=== PATIENT | female | born 1995 | race Caucasian/White ===

== ENCOUNTER 2021-01-27 11:52 | Day surgery (SDC) | payer OTHER, BC ==
[2021-01-22 14:55] VITALS: BMI 40.2
[~2021-01-27 11:52] MED LIST: DEXAMETHASONE SOD PHOSPHATE 4 MG/ML 1 ML VIAL IV ONE; HYDROmorphone 0.5 MG/0.5 ML SYRINGE IVP PRN; LACTATED RINGERS 1,000 ML IV SCH; LIDOCAINE 1% (10MG/ML) FOR IV START INTRADERMA PRN; MIDAZOLAM 2 MG/2 ML VIAL IV PRN; ONDANSETRON 4 MG/2 ML VIAL IVP ONE
[2021-01-27 12:21] VITALS: TEMP 98.3
[2021-01-27] MEDS ORDERED: MIDAZOLAM 2 MG/2 ML VIAL ONE (12:55)
[2021-01-27] MEDS ORDERED: PHENYLEPHRINE-0.9% NACL SYG 1,000 MCG/10 ML SYRINGE ONE (12:55)
[2021-01-27] MEDS ORDERED: fentaNYL (PF) 50 MCG/ML 2 ML AMP ONE (12:55)
[2021-01-27] MEDS ORDERED: PROPOFOL 10 MG/ML 20 ML VIAL IV ONE (12:55)
[2021-01-27] MEDS ORDERED: BUPIVACAINE (PF) 0.25% 30 ML VIAL SQ ONE (12:57)
[2021-01-27] MEDS ORDERED: CLINDAMYCIN 150 MG/ML 4 ML VIAL IVPB ONE (13:05)
[2021-01-27] MEDS ORDERED: LIDOCAINE 1% (PF) 10 MG/ML (30 ML SDV) SQ ONE (13:16)
[2021-01-27 13:38] VITALS: RESP 16
--- NOTE | 2021-01-27 13:39 | P.OP ---
Date of Procedure: 01/27/21 Preoperative Diagnosis: Hypertrophied bone fifth toe right foot Postoperative Diagnosis: Same Procedure(s) Performed: Terminal Syme procedure fifth toe right foot Anesthesia: MAC Surgeon: Indra Tamayo Indications for Procedure: Painful corn fifth digit right foot Operative Findings: Remarkable Description of Procedure: On the date of surgery the patient was taken to the operating room in good condition placed on the operating table in supine position where an IV was started and adequate IV anesthetic agents were utilized. Anesthesia was then further supplemented with approximately 4 mL of 0.25% plain Marcaine given in a digital block to the fifth ray of the patient's right foot. The patient's right foot and ankle were then prepped and draped in the usual aseptic manner and over heavy web roll padding an ankle tourniquet was placed above the malleoli of the patient's right ankle. The patient's right foot and ankle were then elevated and exsanguinated of blood utilizing an Esmarch bandage and after approximately 1 minutes. A time the ankle tourniquet to the right ankle was inflated to approximately 250 mmHg At this point in time attention was directed to the distal aspect of the fifth toe the right foot where approximately 1 cm fishmouth incision was made. The incision was deepened via sharp dissection down through the level of the subcutaneous tissue layers all neurovascular structures encountered were identified isolated and were retracted and any bleeding vessels were clamped and electrocauterized. Throughout the surgical procedure copious amounts sterile saline solution was used to irrigate the surgical site. Dissection was then carried deep down to level of the terminal phalanx which was identified and dissected free dorsally plantarly medially and laterally. Using bone-cutting Ciro hyperostosis and hypertrophied bone at the distal aspect of the terminal phalanx was removed in total from the surgical site. Was determined that adequate bone had been removed skin edges were coaptated and maintained utilizing 4-0 nylon simple interrupted suture Adaptic sterile 4 x 4 gauze four-inch conformer's used to form a compression dressing and the ankle tourniquet to the right ankle was deflated adequate hemostatic return was seen in all digits of the right foot. The patient tolerated the surgery and anesthesia well and was taken recovery room in good postoperative condition
[2021-01-27 14:07] VITALS: BP 118/75; PULSE 56
== END 2021-01-27 14:40 | disposition home or self-care (01) ==
LOC: OR 11:52
PROVIDERS: ATTEND Podiatrist Foot & Ankle Surgery
DX: M89.9 Disorder of bone, unspecified (principal); J45.909 Unspecified asthma, uncomplicated; Z88.0 Allergy status to penicillin
CPT/HCPCS: 81025; 88304; 88311; 28825; J2250; J1100; J2405; J2001; J3010; J2370; J2704

== ENCOUNTER 2022-02-16 12:37 | Day surgery (SDC) | payer OTHER, BC ==
[~2022-02-16 12:37] MED LIST changes: -MIDAZOLAM 2 MG/2 ML VIAL IV PRN; +Pre Op ABX Message 1 EACH MISC MISCELLANE ONE; +SCOPOLAMINE 1 MG/72 HR PATCH TRANSDERM ONE
[2022-02-16 13:20] VITALS: TEMP 98.5
[2022-02-16] MEDS ORDERED: MIDAZOLAM 2 MG/2 ML VIAL IVP ONE (14:03)
[2022-02-16] MEDS ORDERED: MIDAZOLAM 2 MG/2 ML VIAL ONE (14:05)
[2022-02-16] MEDS ORDERED: fentaNYL (PF) 50 MCG/ML 2 ML AMP ONE (14:05)
[2022-02-16] MEDS ORDERED: PROPOFOL 10 MG/ML 20 ML VIAL IV ONE (14:05)
[2022-02-16 14:07] VITALS: RESP 16
[2022-02-16] MEDS ORDERED: BUPIVACAINE (PF) 0.25% 30 ML VIAL SQ ONE (14:23)
[2022-02-16] MEDS ORDERED: BACITRACIN ZINC 500 UNIT/GM OINT 28.4 GM TUBE TOPICAL ONE (14:31)
--- NOTE | 2022-02-16 14:49 | P.OP ---
Date of Procedure: 02/16/22 Preoperative Diagnosis: Painful ingrown nail 5th digirt right foot Postoperative Diagnosis: Same Procedure(s) Performed: Excision of nail and matrix fifth digit right foot Anesthesia: MAC Surgeon: Indra Tamayo Description of Procedure: The date of surgery the patient was taken to the operating room in good condition placed on the operating table in supine position where an IV was started and adequate IV anesthetic agents were utilized anesthesia was then further supplemented with approximately 2 mL of 0.25% plain Marcaine given in a digital block to the fifth toe the patient's right foot. The patient's right foot and ankle were then prepped and draped in the usual aseptic manner. At this time Asians right foot were elevated and exsanguinated of blood utilizing an Esmarch bandage and after approximately 1 minutes. A time the ankle tourniquet was inflated to approximately 250 mmHg. At this time attention was directed to the distal aspect of the fifth digit of the right foot where an approximately 0.75 cm surgical incision was made about the nail plate and matrix area of the fifth toe the right foot. The incision was deepened down through the subcutaneous tissue layers by approximately millimeters wedge encompassed by the ellipse was excised in total from the surgical site skin edges were then coaptated and maintained utilizing 4-0 nylon simple interrupted suture Adaptic and inch Leidy used to form a compression dressing and the ankle tourniquet to the patient's right ankle was deflated adequate hemostatic return was seen in all digits the patient's right foot specifically the right fifth digit.
[2022-02-16] MEDS ORDERED: HYDROcodone/APAP 5-325MG 1 EACH TAB PO ONE (15:16)
[2022-02-16] MEDS ORDERED: HYDROcodone/APAP 5-325MG 1 EACH TAB ONE (15:18)
[2022-02-16 15:38] VITALS: BP 99/66; PULSE 68
== END 2022-02-16 16:20 | disposition home or self-care (01) ==
LOC: OR 12:37
PROVIDERS: ATTEND Podiatrist Foot & Ankle Surgery
DX: L60.0 Ingrowing nail (principal); Z79.899 Other long term (current) drug therapy; K21.9 Gastro-esophageal reflux disease without esophagitis; Z83.3 Family history of diabetes mellitus; Z83.49 Family history of other endocrine, nutritional and metabolic diseases; J45.909 Unspecified asthma, uncomplicated; F41.8 Other specified anxiety disorders; Z79.3 Long term (current) use of hormonal contraceptives; J30.9 Allergic rhinitis, unspecified; Z88.1 Allergy status to other antibiotic agents; Z88.0 Allergy status to penicillin
CPT/HCPCS: 81025; 11750; J2250; J1100; J2405; J3010; J2704

== ENCOUNTER → 2022-04-06 | Outpatient (CLI) | payer OTHER, BC ==
--- NOTE | 2022-04-06 15:39 | USB ---
Reason for Exam: Clinical finding. Findings: The whole breast of both breasts, the axilla of both breasts and the retroareolar of both breasts were scanned. A lobulated mass right 6:00 position measuring 1.3 x 1.1 x 1.5 cm. Tissue diagnosis is recommended. No solid or cystic lesions are seen within the left breast.. Overall Assessment: Suspicious, BI-RAD 4 Management: Ultrasound Core Biopsy of the right breast. A clinical breast exam by your physician is recommended on an annual basis and results should be correlated with mammographic findings. Electronically signed and approved by: Drake De Souza M.D. Radiologis
== END | disposition home or self-care (01) ==
LOC: RADUSWWP 15:02
PROVIDERS: ATTEND Obstetrics & Gynecology
DX: N63.0 Unspecified lump in unspecified breast (principal); N64.52 Nipple discharge; N64.4 Mastodynia

== ENCOUNTER → 2022-06-24 | Day surgery (SDC) | payer OTHER, BC ==
[2022-06-22 14:48] VITALS: BMI 38.9
[~2022-06-24] MED LIST changes: +BUPIVACAINE (PF) 0.5% 30 ML VIAL SQ ONE; +HEPARIN SODIUM,PORCINE/PF 5,000 UNIT/0.5 ML SYRINGE SQ PRN; +KETOROLAC 15 MG/ML 1 ML VIAL ONE; +LACTATED RINGERS 1,000 ML IV ONE; +LIDOCAINE 1%-EPI 1:100,000 20 ML VIAL SQ ONE; +LIDOCAINE 2% INJ 20 MG/ML (2 ML VIAL) ONE; +MIDAZOLAM 2 MG/2 ML VIAL ONE; +PROPOFOL 10 MG/ML 20 ML VIAL IV ONE; +SUCCINYLCHOLINE CHLORIDE 200 MG/10 ML VIAL IV ONE; +fentaNYL (PF) 50 MCG/ML 2 ML AMP ONE
[2022-06-24 10:58] VITALS: RESP 16
--- NOTE | 2022-06-24 12:25 | P.OP ---
Date of Procedure: 06/24/22 Preoperative Diagnosis: Right breast mass Postoperative Diagnosis: Right breast mass Anesthesia: MAC Surgeon: LuzM aria Underwood Estimated Blood Loss (ml): 5 Pathology: other Condition: stable Disposition: PACU Indications for Procedure: The patient's a 26-year-old female with a right palpable breast mass Description of Procedure: The patient is taken to the operative suite where she is prepped and draped in the usual sterile manner under general anesthetic. Local anesthetic was ins tilled into the skin and breast tissue. A circumareolar incision was made. The mass is sharply dissected free and sent for pathology. Small bleeding points were controlled with electrocautery. The skin was then closed with 4-0 Vicryl in a subcuticular manner. Steri-Strips and dressings were applied. She tolerated the procedure without difficulty and was taken recovery room in satisfactory condition. According to or personnel, all counts WERE correct. Plan - Discharge Summary Discharge Rx Participant: Yes New Discharge Prescriptions: New traMADol HCL 1 - 2 mg PO Q6HR PRN #15 tablet PRN Reason: Pain No Action Etonogestrel [Nexplanon] 1 implant SQ [id number] Albuterol Inhaler [Ventolin Hfa Inhaler] 1 puff INHALATION DAILY PRN PRN Reason: Dyspnea Discharge Medication List Albuterol Inhaler [Ventolin Hfa Inhaler] 1 puff INHALATION DAILY PRN 01/22/21 [History] Etonogestrel [Nexplanon] 1 implant SQ [id number] 01/22/21 [History] traMADol HCL 1 - 2 mg PO Q6HR PRN #15 tablet 06/24/22 [Rx] Follow up Appointment(s)/Referral(s): Luz Maria Underwood DO [Doctor of Osteopathic Medicine] - 1 Week Activity/Diet/Wound Care/Special Instructions: Ice to the incision for 24-48 hours. Wear while supporting bra. On Monday the dressing may be removed then you may shower. Take the small tapes off in one week. Expect a small amount of bruising. Call if questions or concerns. Discharge Disposition: HOME SELF-CARE
[2022-06-24 12:34] VITALS: TEMP 97.2
[2022-06-24 13:20] VITALS: BP 98/66; PULSE 80
== END | disposition home or self-care (01) ==
LOC: OR 10:12
PROVIDERS: ATTEND Surgery
DX: D24.1 Benign neoplasm of right breast (principal); J45.909 Unspecified asthma, uncomplicated; F17.200 Nicotine dependence, unspecified, uncomplicated; Z83.3 Family history of diabetes mellitus; Z86.59 Personal history of other mental and behavioral disorders; Z88.0 Allergy status to penicillin; Z79.899 Other long term (current) drug therapy
CPT/HCPCS: 81025; 88305; 19120; J2250; J0330; J1100; J2405; J3010; J1885; J2704; J1644; J2001

== ENCOUNTER 2023-09-08 12:03 | Emergency (ER) | payer OTHER, BC ==
[2023-09-08 12:13] VITALS: RESP 20
--- NOTE | 2023-09-08 12:24 | ED ---
URI HPI - General Source: patient, RN notes reviewed Mode of arrival: ambulatory Limitations: no limitations <Bobo Urena - Last Filed: 09/08/23 12:23> <Catalina Whitlock - Last Filed: 09/09/23 19:10> - General Chief Complaint: Upper Respiratory Infection Stated Complaint: chest pains/cough Time Seen by Provider: 09/08/23 12:24 - History of Present Illness Initial Comments: 27-year-old female presents emergency Department with chief complaint of cough and cold like symptoms. Patient states symptoms started last few days he saw PCP yesterday but did not have a clear answer. Patient states she had 2 negative COVID-19 test at home but significantly tested positive. Patient states she has sinus congestion, cough. (Bobo Urena) 27-year-old female presents to the emergency department reporting cold-like symptoms. States that they started a couple of days ago. She is an asthmatic. She has been complaining of a nonproductive cough with some shortness of breath. She has been doing her breathing treatments every 6 hours. She also complains of a sore throat. No fevers. No ear pain. She did today go home, test which was negative. Significant other did test positive. She went to an urgent care today. She reports that they told her she had an ear infection and prescribed her an antibiotic. Patient states that they did not seem to take her complaints seriously and therefore she presents to the emergency room for reevaluation. She denies any chest pain. No abdominal pain. No nausea or vomiting. No other alleviating, precipitating or modifying factors (Catalina Whitlock) - Related Data Home Medications Medication Instructions Recorded Confirmed Etonogestrel [Nexplanon] 1 implant SQ [id number] 01/22/21 09/08/23 D-Methorphan/PE/Acetaminophen 2 cap PO Q4H PRN 09/08/23 09/08/23 [Vicks Dayquil Liquicaps] Ibuprofen [Motrin Ib] 400 mg PO Q8H PRN 09/08/23 09/08/23 guaiFENesin-DM 600/30MG [Mucinex 1 tab PO Q12HR PRN 09/08/23 09/08/23 Dm] Previous Rx's Medication Instructions Recorded Albuterol Inhaler [Ventolin Hfa 2 puff INHALATION Q4HR PRN #1 each 09/08/23 Inhaler] Codeine Phosphate/Guaifenesin 10 ml PO Q4HR PRN 3 Days #120 ml 09/08/23 [Codeine Phosphate/Guaifenesin 10-100 mg/5 ml] predniSONE [Deltasone] 20 mg PO BID #10 tab 09/08/23 Allergies Allergy/AdvReac Type Severity Reaction Status Date / Time clindamycin Allergy Swelling/hi Verified 09/08/23 15:44 ves Penicillins Allergy hives, Verified 09/08/23 15:44 swelling Review of Systems ROS Other: All systems not noted in ROS Statement are negative. <Bobo Urena - Last Filed: 09/08/23 12:23> ROS Other: All systems not noted in ROS Statement are negative. <Catalina Whitlock - Last Filed: 09/09/23 19:10> ROS Statement: Those systems with pertinent positive or pertinent negative responses have been documented in the HPI. Past Medical History Past Medical History: Asthma, GERD/Reflux Additional Past Medical History / Comment(s): seizure x 1 as child-after hitting head, "faint sometimes and was told from anxiety", pt called surgeon today to report burning pain and swelling in rt breast, occ "blurred vision" History of Any Multi-Drug Resistant Organisms: None Reported Past Surgical History: Orthopedic Surgery Additional Past Surgical History / Comment(s): right 5th toe surg.x2 Past Anesthesia/Blood Transfusion Reactions: Motion Sickness Additional Past Anesthesia/Blood Transfusion Reaction / Comment(s): was very e motional when woke up after last surg Past Psychological History: Anxiety, Depression Smoking Status: Vaper Past Alcohol Use History: Occasional Past Drug Use History: Marijuana - Past Family History Mother Family Medical History: No Reported History <Bobo Urena - Last Filed: 09/08/23 12:23> General Exam Limitations: no limitations <Bobo Urena - Last Filed: 09/08/23 12:23> General appearance: alert, in no apparent distress Head exam: Present: atraumatic, normocephalic, normal inspection Eye exam: Present: normal appearance, PERRL, EOMI. Absent: scleral icterus, conjunctival injection, periorbital swelling ENT exam: Present: normal exam, mucous membranes moist Neck exam: Present: normal inspection. Absent: tenderness, meningismus, lymphadenopathy Respiratory exam: Present: normal lung sounds bilaterally. Absent: respiratory distress, wheezes, rales, rhonchi, stridor Cardiovascular Exam: Present: regular rate, normal rhythm, normal heart sounds. Absent: systolic murmur, diastolic murmur, rubs, gallop, clicks GI/Abdominal exam: Present: soft, normal bowel sounds. Absent: distended, tenderness, guarding, rebound, rigid Extremities exam: Present: normal inspection, full ROM, normal capillary refill. Absent: tenderness, pedal edema, joint swelling, calf tenderness Back exam: Present: normal inspection Neurological exam: Present: alert, oriented X3, CN II-XII intact Psychiatric exam: Present: normal affect, normal mood Skin exam: Present: warm, dry, intact, normal color. Absent: rash <Catalina Whitlock - Last Filed: 09/09/23 19:10> - General Exam Comments Initial Comments: Visual Physical Exam Vital signs reviewed General: Well-appearing, nontoxic, no acute distress. Head: Normocephalic, atraumatic Eyes: PERRLA, EOMI ENT: Airway patent Chest: Nonlabored breathing Skin: No visual rash, normal skin tone Neuro: Alert and oriented 3 Musculoskeletal: No gross abnormalities (Bobo Urena) Course Vital Signs 09/08/23 09/08/23 09/08/23 12:05 15:37 16:39 Temperature 98.9 F 98.7 F Pulse Rate 109 H 72 Respiratory 20 20 20 Rate Blood Pressure 127/84 104/71 O2 Sat by Pulse 98 97 Oximetry Medical Decision Making <Bobo Urena - Last Filed: 09/08/23 12:23> <Catalina Whitlock - Last Filed: 09/09/23 19:10> - Medical Decision Making I completed the quick note portion of this chart signed Bobo Urena PA-C (Bobo Urena) Was pt. sent in by a medical professional or institution (VANESSA Mayfield, EXECUTIVE LEGAL SECRETARY, urgent care, hospital, or fpc...) When possible be specific @ -No Did you speak to anyone other than the patient for history (EMS, parent, family, police, friend...)? What history was obtained from this source @ -No Did you review nursing and triage notes (agree or disagree)? Why? @ -I reviewed and agree with nursing and triage notes Were old charts reviewed (outside hosp., previous admission, EMS record, old EKG, old radiological studies, urgent care reports/EKG's, fpc records)? Report findings @ -No old charts were reviewed Differential Diagnosis (chest pain, altered mental status, abdominal pain women, abdominal pain men, vaginal bleeding, weakness, fever, dyspnea, syncope, headache, dizziness, GI bleed, back pain, seizure, CVA, palpatations, mental health, musculoskeletal)? @ -Differential Fever: Pneumonia, viral URI, endocarditis, myocarditis, pericarditis, otitis, sinusitis, peritonsillar Abscess, retropharyngeal Abscess, epiglottitis, peritonitis, appendicitis, Ibis cystitis, diverticulitis, hepatitis, colitis, UTI, PID, TOA, pyelonephritis, prostatitis, epididymitis, meningitis, encephalitis, pulmonary embolism, CVA, thyroid storm, pancreatitis, adrenal crisis, cavernous sinus thrombosis, this is not meant to be an all-inclusive list. EKG interpreted by me (3pts min.). @ -Not done X-rays interpreted by me (1pt min.). @ -Yes and demonstrates no acute intrathoracic process CT interpreted by me (1pt min.). @ -None done U/S interpreted by me (1pt. min.). @ -None done What testing was considered but not performed or refused? (CT, X-rays, U/S, labs)? Why? @ -None What meds were considered but not given or refused? Why? @ -None Did you discuss the management of the patient with other professionals (professionals i.e. , PA, EXECUTIVE LEGAL SECRETARY, lab, RT, psych nurse, social service assistant, pick up attendant, teacher, chief customer officer, director case management)? Give summary @ -No Was smoking cessation discussed for >3mins.? @ -No Was critical care preformed (if so, how long)? @ -No Were there social determinants of health that impacted care today? How? (Homelessness, low income, unemployed, alcoholism, drug addiction, transportation, low edu. Level, literacy, decrease access to med. care, snf, rehab)? @ -No Was there de-escalation of care discussed even if they declined (Discuss DNR or withdrawal of care, Hospice)? DNR status @ -No What co-morbidities impacted this encounter? (DM, HTN, Smoking, COPD, CAD, Cancer, CVA, ARF, Chemo, Hep., AIDS, mental health diagnosis, sleep apnea, morbid obesity)? @ -Asthma Was patient admitted / discharged? Hospital course, mention meds given and route, prescriptions, significant lab abnormalities, going to OR and other pertinent info. @ -Discharge. Upon arrival patient was placed in room 31. Thorough history and physical exam was performed. Patient is swabbed for influenza, Coumadin RSV. Chest x-ray was performed. Patient has no visible signs of respiratory distress. No wheezing. Because of her history of asthma did recommend treatment with steroids and albuterol inhaler. Patient will also be placed on codeine cough syrup. I do not feel that the patient needs to take the antibiotics that were prescribed by the urgent care. Follow up with her doctor in 2-4 days return for any new or worsening symptoms for patient was agreeable to plan she is discharged in stable condition Undiagnosed new problem with uncertain prognosis? @ -No Drug Therapy requiring intensive monitoring for toxicity (Heparin, Nitro, Insulin, Cardizem)? @ -No Were any procedures done? @ -No Diagnosis/symptom? @ -Acute cough, acute bronchospasm, asthma history Acute, or Chronic, or Acute on Chronic? @ -Acute Uncomplicated (without systemic symptoms) or Complicated (systemic symptoms)? @ -complicated Side effects of treatment? @ -No Exacerbation, Progression, or Severe Exacerbation? @ -No Poses a threat to life or bodily function? How? (Chest pain, [place], [place], pneumonia, PE, COPD, DKA, ARF, appy, cholecystitis, CVA, Diverticulitis, Homicidal, Suicidal, threat to staff... and all critical care pts) @ -No (Catalina Whitlock) - Lab Data Lab Results 09/08/23 Range/Units 12:13 Influenza Type A (PCR) Not Detected (Not Detectd) Influenza Type B (PCR) Not Detected (Not Detectd) RSV (PCR) Not Detected (Not Detectd) SARS-CoV-2 (PCR) Not Detected (Not Detectd) Disposition <Bobo Urena - Last Filed: 09/08/23 12:23> Is patient prescribed a controlled substance at d/c from ED?: Yes When asked, does pt state using other controlled substances?: No If prescribed controlled substance>3 days was MAPS reviewed?: Prescribed <3 Days If opioid is for acute pain is fill amount 7 days or less?: Yes Time of Disposition: 16:19 <Catalina Whitlock - Last Filed: 09/09/23 19:10> Clinical Impression: Bronchitis, Asthmatic bronchitis Disposition: HOME SELF-CARE Condition: Stable Instructions (If sedation given, give patient instructions): Acute Bronchitis (ED) Additional Instructions: Use the albuterol every 4 hours. Start taking the steroids tomorrow. Use the cough syrup as needed. DONT start the antibiotics until symptoms persist past 7 days. Follow up with your doctor and return for any new or worsening symptoms Prescriptions: Codeine Phosphate/Guaifenesin [Codeine Phosphate/Guaifenesin 10-100 mg/5 ml] 10 ml PO Q4HR PRN 3 Days #120 ml PRN Reason: Cough predniSONE [Deltasone] 20 mg PO BID #10 tab Albuterol Inhaler [Ventolin Hfa Inhaler] 2 puff INHALATION Q4HR PRN #1 each PRN Reason: Cough Referrals: None,Stated [Primary Care Provider] - 1-2 days
--- NOTE | 2023-09-08 12:36 | XR ---
EXAMINATION TYPE: XR chest 2V DATE OF EXAM: 09/08/2023 COMPARISON: NONE HISTORY: Cough and congestion. TECHNIQUE: Frontal and lateral views of the chest are obtained. FINDINGS: There is no focal air space opacity, pleural effusion, or pneumothorax seen. The cardiac silhouette size is within normal limits. The osseous structures are intact. IMPRESSION: No acute cardiopulmonary process.
[2023-09-08] MEDS ORDERED: predniSONE 20 MG TAB PO STA (16:12)
[2023-09-08 17:01] VITALS: BP 104/71; PULSE 72; TEMP 98.7
== END 2023-09-08 16:40 | disposition home or self-care (01) ==
LOC: EC 12:03
DX: J45.909 Unspecified asthma, uncomplicated (principal); Z86.59 Personal history of other mental and behavioral disorders; F17.290 Nicotine dependence, other tobacco product, uncomplicated; F12.90 Cannabis use, unspecified, uncomplicated; Z88.0 Allergy status to penicillin; Z88.1 Allergy status to other antibiotic agents; Z20.822 Contact with and (suspected) exposure to COVID-19
CPT/HCPCS: 87636; 71046; 99285; J7512

== ENCOUNTER 2023-11-13 04:26 | Emergency (ER) | payer OTHER, BC ==
--- NOTE | 2023-11-13 04:55 | ED ---
General Adult HPI - General Chief complaint: Upper Respiratory Infection Stated complaint: Shortness of Breath, Fever Time Seen by Provider: 11/13/23 04:42 Source: patient, RN notes reviewed, old records reviewed Mode of arrival: ambulatory Limitations: no limitations - History of Present Illness Initial comments: 27-year-old female presenting with cough, congestion, sore throat. Patient has had fever and took Tylenol just prior to arrival. Patient states she recently found out she was , last menstrual cycle was approximately 4 weeks ago. She denies any abdominal pain, no vaginal discharge or bleeding. Her has similar URI symptoms. - Related Data Home Medications Medication Instructions Recorded Confirmed Etonogestrel [Nexplanon] 1 implant SQ [id number] 01/22/21 09/08/23 D-Methorphan/PE/Acetaminophen 2 cap PO Q4H PRN 09/08/23 09/08/23 [Vicks Dayquil Liquicaps] Ibuprofen [Motrin Ib] 400 mg PO Q8H PRN 09/08/23 09/08/23 guaiFENesin-DM 600/30MG [Mucinex 1 tab PO Q12HR PRN 09/08/23 09/08/23 Dm] Previous Rx's Medication Instructions Recorded Albuterol Inhaler [Ventolin Hfa 2 puff INHALATION Q4HR PRN #1 each 09/08/23 Inhaler] Codeine Phosphate/Guaifenesin 10 ml PO Q4HR PRN 3 Days #120 ml 09/08/23 [Codeine Phosphate/Guaifenesin 10-100 mg/5 ml] predniSONE [Deltasone] 20 mg PO BID #10 tab 09/08/23 Allergies Allergy/AdvReac Type Severity Reaction Status Date / Time clindamycin Allergy Swelling/hi Verified 11/13/23 04:41 ves Penicillins Allergy hives, Verified 11/13/23 04:41 swelling Review of Systems ROS Statement: Those systems with pertinent positive or pertinent negative responses have been documented in the HPI. ROS Other: All systems not noted in ROS Statement are negative. Past Medical History Past Medical History: Asthma, GERD/Reflux Additional Past Medical History / Comment(s): seizure x 1 as child-after hitting head, "faint sometimes and was told from anxiety", pt called surgeon today to report burning pain and swelling in rt breast, occ "blurred vision" History of Any Multi-Drug Resistant Organisms: None Reported Past Surgical History: Orthopedic Surgery Additional Past Surgical History / Comment(s): right 5th toe surg.x2 Past Anesthesia/Blood Transfusion Reactions: Motion Sickness Additional Past Anesthesia/Blood Transfusion Reaction / Comment(s): was very emotional when woke up after last surg Past Psychological History: Anxiety, Depression Smoking Status: Vaper Past Alcohol Use History: Occasional Past Drug Use History: Marijuana - Past Family History Mother Family Medical History: No Reported History General Exam Limitations: no limitations General appearance: alert, in no apparent distress Head exam: Present: atraumatic, normocephalic Eye exam: Present: normal appearance, PERRL ENT exam: Present: mucous membranes moist. Absent: normal oropharynx (Erythema) Neck exam: Present: normal inspection. Absent: tenderness Respiratory exam: Present: normal lung sounds bilaterally. Absent: respiratory distress, wheezes, rhonchi Cardiovascular Exam: Present: regular rate, normal rhythm Neurological exam: Present: alert, oriented X3, CN II-XII intact. Absent: motor sensory deficit Psychiatric exam: Present: normal affect, normal mood Skin exam: Present: warm, dry, intact Course Vital Signs 11/13/23 11/13/23 04:37 04:50 Temperature 99.0 F Pulse Rate 106 H Respiratory 22 19 Rate Blood Pressure 128/82 O2 Sat by Pulse 98 Oximetry Medical Decision Making - Medical Decision Making Was pt. sent in by a medical professional or institution (, PA, SCHOOL LUNCH MONITOR, urgent care, hospital, or assisted...) When possible be specific @ -No Did you speak to anyone other than the patient for history (EMS, parent, family, police, friend...)? What history was obtained from this source @ -No Did you review nursing and triage notes (agree or disagree)? Why? @ -I reviewed and agree with nursing and triage notes Were old charts reviewed (outside hosp., previous admission, EMS record, old EKG, old radiological studies, urgent care reports/EKG's, assisted records)? Report findings @ -No old charts were reviewed Differential Diagnosis (chest pain, altered mental status, abdominal pain women, abdominal pain men, vaginal bleeding, weakness, fever, dyspnea, syncope, headache, dizziness, GI bleed, back pain, seizure, CVA, palpatations, mental health, musculoskeletal)? @Upper respiratory infection, pneumonia, influenza EKG interpreted by me (3pts min.). @ -As above X-rays interpreted by me (1pt min.). @ -None done CT interpreted by me (1pt min.). @ -None done U/S interpreted by me (1pt. min.). @ -None done What testing was considered but not performed or refused? (CT, X-rays, U/S, labs)? Why? @ -None What meds were considered but not given or refused? Why? @ -None Did you discuss the management of the patient with other professionals (professionals i.e. , PA, SCHOOL LUNCH MONITOR, lab, RT, psych nurse, social director, padded products finisher, teacher, residential care officer, pillowcase sewer)? Give summary @ -No Was smoking cessation discussed for >3mins.? @ -No Was critical care preformed (if so, how long)? @ -No Were there social determinants of health that impacted care today? How? (Homelessness, low income, unemployed, alcoholism, drug addiction, transportation, low edu. Level, literacy, decrease access to med. care, mcc, rehab)? @ -No Was there de-escalation of care discussed even if they declined (Discuss DNR or withdrawal of care, Hospice)? DNR status @ -No What co-morbidities impacted this encounter? (DM, HTN, Smoking, COPD, CAD, Cancer, CVA, ARF, Chemo, Hep., AIDS, mental health diagnosis, sleep apnea, mor bid obesity)? @ -None Was patient admitted / discharged? Hospital course, mention meds given and route, prescriptions, significant lab abnormalities, going to OR and other pertinent info. @ -[27-year-old female presenting with cough, congestion, fever. Patient does test positive for influenza A. Instructed on symptomatic treatment and fever control. She will maintain hydration. She is planning to follow-up with obstetrics regarding her recent . Undiagnosed new problem with uncertain prognosis? @ -No Drug Therapy requiring intensive monitoring for toxicity (Heparin, Nitro, Insul in, Cardizem)? @ -No Were any procedures done? @ -No Diagnosis/symptom? @ -Influenza A Acute, or Chronic, or Acute on Chronic? @ -[Acute Uncomplicated (without systemic symptoms) or Complicated (systemic symptoms)? @ -Default Side effects of treatment? @ -No Exacerbation, Progression, or Severe Exacerbation? @ -No Poses a threat to life or bodily function? How? (Chest pain, [place], [place], pneumonia, PE, COPD, DKA, ARF, appy, cholecystitis, CVA, Diverticulitis, Homicidal, Suicidal, threat to staff... and all critical care pts) @ -[Low risk at this time - Lab Data Lab Results 11/13/23 Range/Units 04:50 Influenza Type A (PCR) Detected A (Not Detectd) Influenza Type B (PCR) Not Detected (Not Detectd) RSV (PCR) Not Detected (Not Detectd) SARS-CoV-2 (PCR) Not Detected (Not Detectd) Disposition Clinical Impression: Influenza Disposition: HOME SELF-CARE Condition: Stable Instructions (If sedation given, give patient instructions): Influenza (ED), Upper Respiratory Infection (ED) Is patient prescribed a controlled substance at d/c from ED?: No Referrals: Lyle Summers MD [Primary Care Provider] - 1-2 days Time of Disposition: 05:44
[2023-11-13] MEDS: ONDANSETRON ODT 4 MG TAB PO STA (05:33)
[2023-11-13 06:19] VITALS: BP 134/78; PULSE 75; RESP 18; TEMP 98.1
== END 2023-11-13 05:59 | disposition home or self-care (01) ==
LOC: EC 04:26
DX: J10.1 Influenza due to other identified influenza virus with other respiratory manifestations (principal); J45.909 Unspecified asthma, uncomplicated; F41.9 Anxiety disorder, unspecified; F32.A Depression, unspecified; F12.90 Cannabis use, unspecified, uncomplicated; F17.290 Nicotine dependence, other tobacco product, uncomplicated; Z79.899 Other long term (current) drug therapy; Z88.0 Allergy status to penicillin; Z88.8 Allergy status to other drugs, medicaments and biological substances; Z20.822 Contact with and (suspected) exposure to COVID-19
CPT/HCPCS: 87636; 99284

== ENCOUNTER 2024-01-16 09:58 | Emergency (ER) | payer BC, OTHER ==
--- NOTE | 2024-01-16 10:34 | ED ---
Abdominal Pain HPI - General Chief Complaint: Abdominal Pain Stated Complaint: 13wks preg-Cramping Time Seen by Provider: 01/16/24 10:18 Source: patient, RN notes reviewed Mode of arrival: ambulatory Limitations: no limitations - History of Present Illness Initial Comments: 28-year-old G1, P0 female at 13 weeks gestation presenting for lower left abdomi nal pain for 6 hours. States she woke up and she was having intermittent, sharp cramping in her left lower quadrant of her abdomen that radiates down her left leg. States that when she is having a cramp the pain is about a 6 out of 10 and right now she is not having the cramps and it is about a 2. She has never had this before. Denies vaginal bleeding, vaginal discharge, nausea, vomiting, diar jody. Her OB is . She has had an ultrasound and everything has been normal thus far during . Admits to sexual intercourse in the last 24 hours. Denies any recent trauma or injury, heavy lifting. Denies dysuria, urinary frequency, urinary urgency, hematuria. - Related Data Home Medications Medication Instructions Recorded Confirmed Etonogestrel [Nexplanon] 1 implant SQ [id number] 01/22/21 09/08/23 D-Methorphan/PE/Acetaminophen 2 cap PO Q4H PRN 09/08/23 09/08/23 [Vicks Dayquil Liquicaps] Ibuprofen [Motrin Ib] 400 mg PO Q8H PRN 09/08/23 09/08/23 guaiFENesin-DM 600/30MG [Mucinex 1 tab PO Q12HR PRN 09/08/23 09/08/23 Dm] Previous Rx's Medication Instructions Recorded Albuterol Inhaler [Ventolin Hfa 2 puff INHALATION Q4HR PRN #1 each 09/08/23 Inhaler] Codeine Phosphate/Guaifenesin 10 ml PO Q4HR PRN 3 Days #120 ml 09/08/23 [Codeine Phosphate/Guaifenesin 10-100 mg/5 ml] predniSONE [Deltasone] 20 mg PO BID #10 tab 09/08/23 Allergies Allergy/AdvReac Type Severity Reaction Status Date / Time clindamycin Allergy Swelling/hi Verified 01/16/24 10:09 ves Penicillins Allergy hives, Verified 01/16/24 10:09 swelling Review of Systems ROS Statement: Those systems with pertinent positive or pertinent negative responses have been documented in the HPI. ROS Other: All systems not noted in ROS Statement are negative. Past Medical History Past Medical History: Asthma, GERD/Reflux Additional Past Medical History / Comment(s): seizure x 1 as child-after hitting head, "faint sometimes and was told from anxiety", pt called surgeon today to report burning pain and swelling in rt breast, occ "blurred vision" History of Any Multi-Drug Resistant Organisms: None Reported Past Surgical History: Orthopedic Surgery Additional Past Surgical History / Comment(s): right 5th toe surg.x2 Past Anesthesia/Blood Transfusion Reactions: Motion Sickness Additional Past Anesthesia/Blood Transfusion Reaction / Comment(s): was very emotional when woke up after last surg Past Psychological History: Anxiety, Depression Smoking Status: Former smoker, Vaper Past Alcohol Use History: Occasional Past Drug Use History: Marijuana - Past Family History Mother Family Medical History: No Reported History General Exam Limitations: no limitations General appearance: alert, in no apparent distress Head exam: Present: atraumatic, normocephalic, normal inspection Eye exam: Present: normal appearance, PERRL, EOMI. Absent: scleral icterus, conjunctival injection, periorbital swelling Respiratory exam: Present: normal lung sounds bilaterally. Absent: respiratory distress, wheezes, rales, rhonchi, stridor Cardiovascular Exam: Present: regular rate, normal rhythm, normal heart sounds. Absent: systolic murmur, diastolic murmur, rubs, gallop, clicks GI/Abdominal exam: Present: soft, normal bowel sounds. Absent: distended, tenderness, guarding, rebound, rigid Psychiatric exam: Present: normal affect, normal mood Skin exam: Present: warm, dry, intact, normal color. Absent: rash Course Vital Signs 01/16/24 01/16/24 10:06 11:59 Temperature 97.9 F Pulse Rate 79 Respiratory 18 16 Rate Blood Pressure 122/78 O2 Sat by Pulse 100 Oximetry Medical Decision Making - Medical Decision Making Was pt. sent in by a medical professional or institution (, PA, CAN BANDER OPERATOR, urgent care, hospital, or jail...) When possible be specific @ -Sent by OB Dr. Quezada Did you speak to anyone other than the patient for history (EMS, parent, family, police, friend...)? What history was obtained from this source @ -No Did you review nursing and triage notes (agree or disagree)? Why? @ -I reviewed and agree with nursing and triage notes Were old charts reviewed (outside hosp., previous admission, EMS record, old EKG, old radiological studies, urgent care reports/EKG's, jail records)? Report findings @ -No old charts were reviewed Differential Diagnosis (chest pain, altered mental status, abdominal pain women, abdominal pain men, vaginal bleeding, weakness, fever, dyspnea, syncope, headache, dizziness, GI bleed, back pain, seizure, CVA, palpatations, mental h ealth, musculoskeletal)? @ -Differential Abdominal Pain Women: Ectopic , threatened , ovarian hyperstimulation syndrome, appendicitis, Cholecystitis, diverticulosis, ischemic bowel, pancreatitis, hepatitis, UTI, gastroenteritis, AAA, incarcerated hernia, bowel obstruction, constipation, inflammatory bowel, hepatitis, peptic ulcer disease, splenic infarction, perforated viscus, vulvitis, ovarian torsion, PID, kidney stone, placenta abruption, this is not meant to be an all-inclusive list EKG interpreted by me (3pts min.). @ -None X-rays interpreted by me (1pt min.). @ -None done CT interpreted by me (1pt min.). @ -None done U/S interpreted by me (1pt. min.). @ -Ultrasound revealed live intrauterine fetus with low-lying placenta What testing was considered but not performed or refused? (CT, X-rays, U/S, labs)? Why? @ -None What meds were considered but not given or refused? Why? @ -None Did you discuss the management of the patient with other professionals (professionals i.e. , PA, CAN BANDER OPERATOR, lab, RT, psych nurse, social media designer, slicing machine operator, teacher, chief resource officer, correctional casework specialist)? Give summary @ -No Was smoking cessation discussed for >3mins.? @ -No Was critical care preformed (if so, how long)? @ -No Were there social determinants of health that impacted care today? How? (Homelessness, low income, unemployed, alcoholism, drug addiction, transportation, low edu. Level, literacy, decrease access to med. care, senior care, rehab)? @ -No Was there de-escalation of care discussed even if they declined (Discuss DNR or withdrawal of care, Hospice)? DNR status @ -No What co-morbidities impacted this encounter? (DM, HTN, Smoking, COPD, CAD, Cancer, CVA, ARF, Chemo, Hep., AIDS, mental health diagnosis, sleep apnea, morbid obesity)? @ -None Was patient admitted / discharged? Hospital course, mention meds given and route, prescriptions, significant lab abnormalities, going to OR and other pertinent info. @ -Patient was discharged. Patient was seen and evaluated for LLQ pain at 13 weeks gestation. Denies vaginal bleeding or vaginal discharge. Vitals are stable and there is no abdominal tenderness upon examination. Ultrasound performed and reveals live intrauterine fetus. Lab work unremarkable. Discussed there are no signs of emergent abdominal pain at this time. Strict alarm symptoms and return symptoms discussed with patient in detail and patient shows understanding. Advised close follow-up with OB within the next 1 to 3 days. Patient discharged in stable condition. Case discussed with Dr. Redd Undiagnosed new problem with uncertain prognosis? @ -No Drug Therapy requiring intensive monitoring for toxicity (Heparin, Nitro, Insulin, Cardizem)? @ -No Were any procedures done? @ -No Diagnosis/symptom? @ -Abdominal pain in Acute, or Chronic, or Acute on Chronic? @ -Acute Uncomplicated (without systemic symptoms) or Complicated (systemic symptoms)? @ -Uncomplicated Side effects of treatment? @ -No Exacerbation, Progression, or Severe Exacerbation? @ -No Poses a threat to life or bodily function? How? (Chest pain, [place], [place], pneumonia, PE, COPD, DKA, ARF, appy, cholecystitis, CVA, Diverticulitis, Homicidal, Suicidal, threat to staff... and all critical care pts) @ -No - Lab Data Result diagrams: 01/16/24 10:43 01/16/24 10:43 Lab Results 01/16/24 01/16/24 01/16/24 Range/Units 10:40 10:43 10:43 WBC 6.1 (3.8-10.6) k/uL RBC 4.54 (3.80-5.40) m/uL Hgb 14.0 (11.4-16.0) gm/dL Hct 40.7 (34.0-46.0) % MCV 89.6 (80.0-100.0) fL MCH 30.7 (25.0-35.0) pg MCHC 34.3 (31.0-37.0) g/dL RDW 13.3 (11.5-15.5) % Plt Count 240 (150-450) k/uL MPV 7.8 Neutrophils % 60 % Lymphocytes % 33 % Monocytes % 5 % Eosinophils % 1 % Basophils % 0 % Neutrophils # 3.7 (1.3-7.7) k/uL Lymphocytes # 2.0 (1.0-4.8) k/uL Monocytes # 0.3 (0-1.0) k/uL Eosinophils # 0.1 (0-0.7) k/uL Basophils # 0.0 (0-0.2) k/uL Sodium (137-145) mmol/L Potassium (3.5-5.1) mmol/L Chloride (98-107) mmol/L Carbon Dioxide (22-30) mmol/L Anion Gap mmol/L BUN (7-17) mg/dL Creatinine (0.52-1.04) mg/dL Est GFR (CKD-EPI)AfAm (>60 ml/min/1.73 sqM) Est GFR (CKD-EPI)NonAf (>60 ml/min/1.73 sqM) Glucose (74-99) mg/dL Calcium (8.4-10.2) mg/dL Total Bilirubin (0.2-1.3) mg/dL AST (14-36) U/L ALT (4-34) U/L Alkaline Phosphatase (38-126) U/L Total Protein (6.3-8.2) g/dL Albumin (3.5-5.0) g/dL HCG, Quant mIU/mL Urine Color Colorless Urine Appearance Cloudy H (Clear) Urine pH 6.5 (5.0-8.0) Ur Specific Rush 1.010 (1.001-1.035) Urine Protein Negative (Negative) Urine Glucose (UA) Negative (Negative) Urine Ketones Negative (Negative) Urine Blood Negative (Negative) Urine Nitrite Negative (Negative) Urine Bilirubin Negative (Negative) Urine Urobilinogen <2.0 (<2.0) mg/dL Ur Leukocyte Esterase Negative (Negative) Urine RBC 1 (0-5) /hpf Urine WBC 1 (0-5) /hpf Ur Squamous Epith Cells 4 (0-4) /hpf Urine Bacteria Occasional H (None) /hpf Urine Mucus Rare H (None) /hpf Blood Type O Negative Blood Type Recheck No Previous Record Bld Type Recheck Status [facility] ONLY 01/16/24 Range/Units 10:43 WBC (3.8-10.6) k/uL RBC (3.80-5.40) m/uL Hgb (11.4-16.0) gm/dL Hct (34.0-46.0) % MCV (80.0-100.0) fL MCH (25.0-35.0) pg MCHC (31.0-37.0) g/dL RDW (11.5-15.5) % Plt Count (150-450) k/uL MPV Neutrophils % % Lymphocytes % % Monocytes % % Eosinophils % % Basophils % % Neutrophils # (1.3-7.7) k/uL Lymphocytes # (1.0-4.8) k/uL Monocytes # (0-1.0) k/uL Eosinophils # (0-0.7) k/uL Basophils # (0-0.2) k/uL Sodium 136 L (137-145) mmol/L Potassium 3.9 (3.5-5.1) mmol/L Chloride 109 H (98-107) mmol/L Carbon Dioxide 20 L (22-30) mmol/L Anion Gap 7 mmol/L BUN 4 L (7-17) mg/dL Creatinine 0.37 L (0.52-1.04) mg/dL Est GFR (CKD-EPI)AfAm >90 (>60 ml/min/1.73 sqM) Est GFR (CKD-EPI)NonAf >90 (>60 ml/min/1.73 sqM) Glucose 74 (74-99) mg/dL Calcium 8.8 (8.4-10.2) mg/dL Total Bilirubin 0.7 (0.2-1.3) mg/dL AST 25 (14-36) U/L ALT 19 (4-34) U/L Alkaline Phosphatase 67 (38-126) U/L Total Protein 6.4 (6.3-8.2) g/dL Albumin 3.8 (3.5-5.0) g/dL HCG, Quant 65712.8 mIU/mL Urine Color Urine Appearance (Clear) Urine pH (5.0-8.0) Ur Specific Rush (1.001-1.035) Urine Protein (Negative) Urine Glucose (UA) (Negative) Urine Ketones (Negative) Urine Blood (Negative) Urine Nitrite (Negative) Urine Bilirubin (Negative) Urine Urobilinogen (<2.0) mg/dL Ur Leukocyte Esterase (Negative) Urine RBC (0-5) /hpf Urine WBC (0-5) /hpf Ur Squamous Epith Cells (0-4) /hpf Urine Bacteria (None) /hpf Urine Mucus (None) /hpf Blood Type Blood Type Recheck Bld Type Recheck Status Disposition Clinical Impression: Abdominal pain in Disposition: HOME SELF-CARE Condition: Stable Instructions (If sedation given, give patient instructions): Abdominal Pain in (ED) Additional Instructions: Please follow-up with OB within the week. Please return to the Emergency Department if symptoms worsen or any other concerns. Is patient prescribed a controlled substance at d/c from ED?: No Referrals: Lyle Summers MD [Primary Care Provider] - 1-2 days Time of Disposition: 11:48
[2024-01-16 11:03] LABS: ALT 19 U/L (4-34); AST 25 U/L (14-36); African American GFR (CKD) >90 (>60 ml/min/1.73 sqM); Albumin 3.8 g/dL (3.5-5.0); Alkaline Phosphatase 67 U/L (38-126); Anion Gap 7 mmol/L; Blood Urea Nitrogen 4 mg/dL (7-17); Calcium 8.8 mg/dL (8.4-10.2); Carbon Dioxide 20 mmol/L (22-30); Chloride 109 mmol/L (98-107); Glucose 74 mg/dL (74-99); Non-African American GFR(CKD) >90 (>60 ml/min/1.73 sqM); Potassium 3.9 mmol/L (3.5-5.1); Sodium 136 mmol/L (137-145); Total Bilirubin 0.7 mg/dL (0.2-1.3); Total Protein 6.4 g/dL (6.3-8.2)
[2024-01-16 11:04] LABS: Appearance,Urine Cloudy (Clear); Bacteria,Urine Occasional /hpf; Basophils % (A) 0 %; Bilirubin,Urine Negative (Negative); Blood,Urine Negative (Negative); Color,Urine Colorless; Eosinophils # (A) 0.1 k/uL (0-0.7); Eosinophils % (A) 1 %; Glucose,Urine (UA) Negative (Negative); HCT 40.7 % (34.0-46.0); Ketones,Urine Negative (Negative); Leukocyte Esterase,Urine Negative (Negative); Lymphocytes % (A) 33 %; MCH 30.7 pg (25.0-35.0); MCHC 34.3 g/dL (31.0-37.0); MCV 89.6 fL (80.0-100.0); Mean Platelet Volume 7.8; Monocytes # (A) 0.3 k/uL (0-1.0); Monocytes % (A) 5 %; Mucus,Urine Rare /hpf; Neutrophils # (A) 3.7 k/uL (1.3-7.7); Neutrophils % (A) 60 %; Nitrite,Urine Negative (Negative); PH, Urine 6.5 (5.0-8.0); Platelet Count 240 k/uL (150-450); Protein,Urine Negative (Negative); RBC 4.54 m/uL (3.80-5.40); RBC,Urine 1 /hpf (0-5); RDW 13.3 % (11.5-15.5); Squamous Epithelial Cell,Urine 4 /hpf (0-4); Urobilinogen,Urine <2.0 mg/dL (<2.0); WBC 6.1 k/uL (3.8-10.6); WBC,Urine 1 /hpf (0-5)
[2024-01-16 11:06] VITALS: BP 122/78; PULSE 79; TEMP 97.9
--- NOTE | 2024-01-16 11:30 | US ---
EXAMINATION TYPE: US OB >= 14 wk fetus DATE OF EXAM: 01/16/2024 COMPARISON: None CLINICAL INDICATION: Female, 28 years old with history of abdominal pain; Pain, no bleeding. . TECHNIQUE: Transabdominal (TA) GESTATIONAL AGE / DATING Physician Established: Not yet established Dates by LMP: (13 weeks/3 days) EDC: 07/20/2024 Dates by First Scan: This is first scan at this facility. Dates by Current Scan: (14 weeks/2 days) EDC: 07/14/2024 SURVEY IUP: Single PLACENTA: Anterior PREVIA: Appears low lying measures 1.4 cm from internal os. DOTTIE: Not measured, fluid quadrants are not yet well defined, pt measuring 14 wks, 2 days. CERVICAL LENGTH (transabdominal: norm > 3.0cm): 3.7 cm BIOMETRY PRESENTATION: Variable BPD: 2.48 cm 14 weeks / 2 days HC: 9.61 cm 14 weeks / 3 days AC: 7.62 cm 14 weeks / 1 days FL: 1.42 cm 14 weeks / 2 days ESTIMATED WEIGHT IN GRAMS: 91 grams ESTIMATED WEIGHT IN LBS/OZ: 0 lbs. 3 oz. WEIGHT PERCENTAGE BASED ON ESTABLISHED DATES: 84% HC/AC: 1.26 Normal FL/AC: 19% HEART RATE: 149 bpm RHYTHM: Normal MATERNAL WALL MEASUREMENT: 4 cm from skin to anterior uterine wall (if exam limited due to body habit us). Exam is limited* IMPRESSION: 1. Single live intrauterine gestation of 7 age 14 weeks 2 days. 2. Low lying placenta suggested approximately 1.47 m from the internal os. Attention on follow up im aging.
[2024-01-16 11:51] LABS: HCG,Quantitative Serum 45740.8 mIU/mL
[2024-01-16 12:34] VITALS: RESP 16
== END 2024-01-16 12:00 | disposition home or self-care (01) ==
LOC: EC 09:58
DX: O26.891 Other specified pregnancy related conditions, first trimester (principal); R10.9 Unspecified abdominal pain; O99.331 Smoking (tobacco) complicating pregnancy, first trimester; F17.290 Nicotine dependence, other tobacco product, uncomplicated; O99.321 Drug use complicating pregnancy, first trimester; F12.90 Cannabis use, unspecified, uncomplicated; Z88.0 Allergy status to penicillin; Z88.8 Allergy status to other drugs, medicaments and biological substances; Z3A.14 14 weeks gestation of pregnancy
CPT/HCPCS: 36415; 76805; 80053; 81001; 84702; 85025; 86900; 86901; 99284

== ENCOUNTER 2024-04-10 10:54 | Outpatient (CLI) | payer OTHER ==
[2024-04-10] MEDS: ACETAMINOPHEN TAB 500 MG TAB PO STA (12:26)
[2024-04-10 13:02] LABS: Appearance,Urine Cloudy (Clear); Bacteria,Urine Rare /hpf; Bilirubin,Urine Negative (Negative); Blood,Urine Negative (Negative); Color,Urine Yellow; Glucose,Urine (UA) Negative (Negative); Ketones,Urine Negative (Negative); Leukocyte Esterase,Urine Negative (Negative); Mucus,Urine Rare /hpf; Nitrite,Urine Negative (Negative); Protein,Urine Negative (Negative); RBC,Urine <1 /hpf (0-5); Specific Gravity,Urine 1.014 (1.001-1.035); Squamous Epithelial Cell,Urine 2 /hpf (0-4); WBC,Urine 3 /hpf (0-5)
[2024-04-10 13:24] VITALS: BP 138/75; PULSE 110; RESP 16; TEMP 97.9
--- NOTE | 2024-05-30 11:10 | P.MSEPDOC ---
Presenting Problems - Arrival Data Date of Arrival on Unit: 04/10/24 Time of Arrival on Unit: 10:54 Mode of Transport: Ambulatory - Complaint OB-Reason for Admission/Chief Complaint: Pain Comment: left lower back pain x1.5 weeks, that is worse when standing and gets better after laying down Medical History - Information : 1 Para: 0 Term: 0 : 0 Abortions: Spontaneous or Elective: 0 Number of Living Children: 0 - Gestational Age Gestational Age by KATIANA (wks/days): 25 Weeks and 4 Days Review of Systems - Review of Systems Constitutional: No problems Breast: No problems ENT: No problems Cardiovascular: No problems Respiratory: No problems Gastrointestinal: No problems Genitourinary: No problems Musculoskeletal: No problems Neurological: No problems Skin: No problems Vital Signs - Temperature Temperature: 97.9 F Temperature Source: Temporal Artery Scan - Pulse Right Sitting Pulse Rate: 110 Pulse Assessment Method: Automatic Cuff - Respirations Respiratory Rate: 16 Oxygen Delivery Method: Room Air O2 Sat by Pulse Oximetry: 98 - Blood Pressure Right Arm Blood Pressure: 138/75 Blood Pressure Mean: 96 Blood Pressure Source: Automatic Cuff Physician Notification - Physician Notified Physician Notified Date: 04/10/24 Physician Notified Time: 13:13 Physician: Claudette Randolph Order Received: Yes (d/c home) Maternal Triage Index - Non-Urgent/Priority 4 Non-Urgent Priority 4: Yes Criteria Met for Priority 4: left lower back pain x1.5 weeks, that is resolved with laying down, no contractions, urine wnl, reassuring fht via doppler Disposition - Disposition OB Disposition: Discharge to home Discharge Date: 04/10/24 Discharge Time: 13:13 I agree with the RN Medical Screening Exam: Yes Physician's MSE Comment: I have neither seen nor examined the patient Case reviewed; plan agreed upon as documented in EMR&OBIX.: Yes Diagnosis: OTH DISEASES AND CONDITIONS COMPLICATING
== END 2024-04-10 13:13 | disposition home or self-care (01) ==
LOC: FBPOP 10:54
PROVIDERS: ATTEND Obstetrics & Gynecology
DX: O26.892 Other specified pregnancy related conditions, second trimester (principal); M54.50 Low back pain, unspecified; Z3A.25 25 weeks gestation of pregnancy; Z88.1 Allergy status to other antibiotic agents; Z88.0 Allergy status to penicillin
CPT/HCPCS: 81001; 99213

== ENCOUNTER 2024-06-19 11:04 | Outpatient (CLI) | payer OTHER ==
[2024-06-19] MEDS: FAMOTIDINE 20 MG TAB PO STA (11:51)
[2024-06-19 12:48] VITALS: BP 136/81; PULSE 68; RESP 16; TEMP 97.3
--- NOTE | 2024-07-04 09:41 | P.MSEPDOC ---
Presenting Problems - Arrival Data Date of Arrival on Unit: 06/19/24 Time of Arrival on Unit: 11:04 Mode of Transport: Ambulatory - Complaint OB-Reason for Admission/Chief Complaint: Pain Comment: Epigastric pain 8/10, "knot" radiated to umbilicus and left and right across upper abdomen. Started at 2230 last night, 2 hrs after eating Medical History - Information : 1 Para: 0 - Gestational Age Gestational Age by KATIANA (wks/days): 35 Weeks and 4 Days Review of Systems - Review of Systems Constitutional: No problems Breast: No problems ENT: No problems Cardiovascular: No problems Respiratory: No problems Gastrointestinal: Pain Genitourinary: No problems Musculoskeletal: No problems Neurological: No problems Skin: No problems Vital Signs - Temperature Temperature: 97.3 F Temperature Source: Temporal Artery Scan - Pulse Right Sitting Brachial Pulse Rate: 68 Pulse Assessment Method: Automatic Cuff - Respirations Respiratory Rate: 16 Oxygen Delivery Method: Room Air O2 Sat by Pulse Oximetry: 98 - Blood Pressure Right Arm Sitting Blood Pressure: 136/81 Blood Pressure Mean: 99 Blood Pressure Source: Automatic Cuff Medical Screen Scoring - Assessment - Baby A Baseline FHR: 140 Heart Rate - NICHD Category: Category I (Normal) NST: Reactive Physician Notification - Physician Notified Physician Notified Date: 06/19/24 Physician Notified Time: 11:42 Physician: Corina Leonard New Order Received: Yes - Notification Comment Comment: Spk c\\Dr. Leonard, advsd , 35 4/7, c/o epigastric pain "knot", constant, 8/10, radiates to umbilicus and left and right, nausea but no vomitting since 2230. 2+pitting edema bilateral feet, 1+nonpitting hands and face, 2+reflexes, clonus absent, no headache, occasional "sparkles" in vision for last couple months. Reviewed BPs. Reactive NST, Cat 1 FHT, no contractions. Order rec'd for Pepcid 40mg PO once, reeval in 30-45min. EFM may be removed. [address] Leonard, pepcid has decreased pts discomfort. Pt to continue to take daily. Follow up as scheduled. Maternal Triage Index - Maternal Triage Index Presenting for scheduled procedure w/no complaint: No - Stat/Priority 1 Stat Priority 1: No - Urgent/Priority 2 Urgent Priority 2: No - Prompt/Priority 3 Prompt Priority 3: No - Non-Urgent/Priority 4 Non-Urgent Priority 4: Yes Criteria Met for Priority 4: Epigastric pain Disposition - Disposition OB Disposition: Discharge to home, Written follow up instructions reviewed Discharge Date: 06/19/24 Discharge Time: 12:43 I agree with the RN Medical Screening Exam: Yes Case reviewed; plan agreed upon as documented in EMR&OBIX.: Yes Diagnosis: RELATED CONDITIONS, UNSPECIFIED, THIRD TRIMESTER
== END 2024-06-19 12:43 | disposition home or self-care (01) ==
LOC: FBPOP 11:04
PROVIDERS: ATTEND Obstetrics & Gynecology Obstetrics
CPT/HCPCS: 59025; 99213

== ENCOUNTER 2024-06-27 05:19 | Outpatient (CLI) | payer OTHER ==
[2024-06-27 06:14] VITALS: BP 154/90; PULSE 96; RESP 16; TEMP 97.8
--- NOTE | 2024-07-04 10:03 | P.MSEPDOC ---
Presenting Problems - Arrival Data Date of Arrival on Unit: 06/27/24 Time of Arrival on Unit: 05:19 Mode of Transport: Ambulatory - Complaint OB-Reason for Admission/Chief Complaint: Decreased Movement Comment: Pt presents to triage with c/o decreased movement tonight. Pt states she has only felt the baby move two times tonight since around 0030 and that the movements felt underwear trimmer than normal. Pt states she drank two cans of pop tonight to increase movement and had a few bottles of water throughout the day yesterday Medical History - Information : 1 Para: 0 Term: 0 : 0 Abortions: Spontaneous or Elective: 0 Number of Living Children: 0 - Gestational Age Gestational Age by KATIANA (wks/days): 36 Weeks and 5 Days Review of Systems - Review of Systems Constitutional: No problems Breast: No problems ENT: No problems Cardiovascular: No problems Respiratory: No problems Gastrointestinal: No problems Genitourinary: No problems Musculoskeletal: No problems Neurological: No problems Skin: No problems Vital Signs - Temperature Temperature: 97.8 F Temperature Source: Oral - Pulse Pulse Oximetery Pulse Rate: 96 Pulse Assessment Method: Pulse Oximetry - Respirations Respiratory Rate: 16 Oxygen Delivery Method: Room Air O2 Sat by Pulse Oximetry: 100 - Blood Pressure Right Arm Blood Pressure: 154/90 Blood Pressure Mean: 111 Blood Pressure Source: Automatic Cuff Medical Screen Scoring - Assessment - Baby A Baseline FHR: 130 Heart Rate - NICHD Category: Category I (Normal) NST: Reactive Physician Notification - Physician Notified Physician Notified Date: 06/27/24 Physician Notified Time: 05:52 Physician: Corina Leonard New Order Received: Yes - Notification Comment Comment: Spoke with Dr. Leonard 36 weeks and 5 days presents with decreased movement since 0030 tonight. Reactive NST, cat 1 tones. No cx or pain. Initial BP elevated, 154/90 but repeat pressures 144/84 and 116/62. Order recieved to d/c home Maternal Triage Index - Maternal Triage Index Presenting for scheduled procedure w/no complaint: No - Stat/Priority 1 Stat Priority 1: No - Urgent/Priority 2 Urgent Priority 2: Yes Provider Notified: Corina Leonard Provider Notified Time: 05:52 Criteria Met for Priority 2: Pt presents to triage with c/o decreased movement tonight. Pt states she has only felt the baby move two times tonight since around 0030 and that the movements felt underwear trimmer than normal. Pt states she drank two cans of pop tonight to increase movement and had a few bottles of water throughout the day yesterday Disposition - Disposition OB Disposition: Discharge to home Discharge Date: 06/27/24 Discharge Time: 05:55 I agree with the RN Medical Screening Exam: Yes Case reviewed; plan agreed upon as documented in EMR&OBIX.: Yes Diagnosis: DECREASED MOVEMENTS, THIRD TRIMESTER, FETUS 1
== END 2024-06-27 05:55 | disposition home or self-care (01) ==
LOC: FBPOP 05:19
PROVIDERS: ATTEND Obstetrics & Gynecology Obstetrics
CPT/HCPCS: 59025; 99213

== ENCOUNTER 2024-07-08 16:30 | Inpatient (IN) | payer OTHER ==
[2024-07-08 17:26] LABS: Basophils % (A) 1 %; Eosinophils # (A) 0.1 k/uL (0-0.7); Eosinophils % (A) 2 %; Lymphocytes # (A) 2.2 k/uL (1.0-4.8); Lymphocytes % (A) 28 %; MCH 31.3 pg (25.0-35.0); MCHC 33.3 g/dL (31.0-37.0); Mean Platelet Volume 8.5; Monocytes # (A) 0.4 k/uL (0-1.0); Monocytes % (A) 6 %; Neutrophils % (A) 63 %; Platelet Count 219 k/uL (150-450); RBC 4.15 m/uL (3.80-5.40); RDW 14.2 % (11.5-15.5); WBC 7.9 k/uL (3.8-10.6)
[2024-07-08 17:35] LABS: ALT 10 U/L (4-34); AST 34 U/L (14-36); African American GFR (CKD) >90 (>60 ml/min/1.73 sqM); Blood Urea Nitrogen 9 mg/dL (7-17); Non-African American GFR(CKD) >90 (>60 ml/min/1.73 sqM); Uric Acid 6.4 mg/dL (3.7-7.4)
--- NOTE | 2024-07-08 18:11 | P.HPOB ---
History of Present Illness H&P Date: 07/08/24 Chief Complaint: IUP at 38 weeks, gestational hypertension 28-year-old 1 para 0 at 38+ weeks that presented to labor and delivery from the office. Patient had an elevated blood pressure in the office 160/90. Patient denied signs or symptoms of preeclampsia. Continued elevated blood pressure was noted here in triage 160-180 over 90s to low 100s. Patient notes good movement, occasional contraction. Review of Systems Constitutional: Denies chills, Denies fatigue, Denies fever Ears, nose, mouth and throat: Denies headache Cardiovascular: Reports leg edema Respiratory: Denies dyspnea Gastrointestinal: Denies constipation, Denies diarrhea, Denies nausea, Denies vomiting Genitourinary: Reports Past Medical History Past Medical History: Asthma, GERD/Reflux Additional Past Medical History / Comment(s): seizure x 1 as child-after hitting head, "faint sometimes and was told from anxiety", pt called surgeon today to report burning pain and swelling in rt breast, occ "blurred vision" History of Any Multi-Drug Resistant Organisms: None Reported Past Surgical History: Orthopedic Surgery Additional Past Surgical History / Comment(s): right 5th toe surg.x2 Past Anesthesia/Blood Transfusion Reactions: Motion Sickness Additional Past Anesthesia/Blood Transfusion Reaction / Comment(s): was very emotional when woke up after last surg Smoking Status: Former smoker - Past Family History Mother Family Medical History: No Reported History Medications and Allergies Home Medications Medication Instructions Recorded Confirmed Type Vit No.179/Iron/Folic 1 tab PO DAILY 04/10/24 07/08/24 History [ Tablet] Famotidine [Pepcid] 1 tab PO DAILY 06/27/24 07/08/24 History Allergies Allergy/AdvReac Type Severity Reaction Status Date / Time clindamycin Allergy Swelling/hi Verified 07/08/24 16:56 ves Penicillins Allergy hives, Verified 07/08/24 16:56 swelling Exam Osteopathic Statement: *. No significant issues noted on an osteopathic structural exam other than those noted in the History and Physical/Consult. Intake and Output 07/08/24 07/08/24 07/08/24 06:59 14:59 22:59 Other: Weight 140.16 kg Targeted physical exam is performed on this date General Is well-nourished well- developed female in no acute distress, patient is resting comfortably in the bed. Breathing is noted to be nonlabored, abdomen is gravid, on cervical exam she is fingertip/50/-3 station vertex presentation. heart tones were noted to be category 1 and she is not tori. Results Result Diagrams: 07/08/24 17:11 07/08/24 17:11 Assessment and Plan (1) 38 weeks gestation of Current Visit: Yes Status: Acute Code(s): Z3A.38 - 38 WEEKS GESTATION OF SNOMED Code(s): 03616086 (2) Gestational hypertension Current Visit: Yes Status: Acute Code(s): O13.9 - GESTATIONAL HTN W/O SIGNIFICANT PROTEINURIA, UNSP TRIMESTER SNOMED Code(s): 39692392 (3) Obesity Current Visit: Yes Status: Acute Code(s): E66.9 - OBESITY, UNSPECIFIED SNOMED Code(s): 319603151 Plan: 28-year-old 1 para 0 at 38+ weeks presents from the office with elevated blood pressures. Elevated blood pressures continued, given elevated blood pressures patient is counseled on the need for induction of labor. Options for induction are discussed including Cervidil and Dilapan. Patient will consider. Patient cervix remains unfavorable and will need ripening prior to Pitocin induction of labor. Will monitor blood pressures and treat with labetalol as indicated.
--- NOTE | 2024-07-08 19:49 | P.PCN ---
Date of Procedure: 07/08/24 Preoperative Diagnosis: IUP at 38+ weeks, gestational hypertension Postoperative Diagnosis: Same Procedure(s) Performed: Dilapan insertion Anesthesia: none Surgeon: Coirna Leonard Estimated Blood Loss (ml): 0 IV fluids (ml): 0 Urine output (ml): 0 Pathology: none sent Condition: stable Disposition: observation Indications for Procedure: 28-year-old 1 para 0 at 38+ weeks admitted for gestational hypertension. Patient is counseled on options for induction of labor given unfavorable cervix. Cervidil and Dilapan are discussed. Patient elects Dilapan after risks and benefits are reviewed. Operative Findings: Cervix fingertip 50 high vertex presentation Description of Procedure: After written and informed consent was obtained a sterile speculum was placed into the vaginal vault and the cervix was visualized. The cervix and vaginal area was cleaned with Betadine. A sponge stick was then used to grasped the anterior lip of the cervix. Another sponge stick was used to grasp the handle of the Dilapan and inserted the levi through the external cervical os gradually without force. This was repeated until adequate Dilapan rods were inserted. A total number of 5 rods were inserted. At the conclusion of the procedure there was no vaginal bleeding. The speculum and all instruments were removed. Patient tolerated procedure well.
[2024-07-08 20:01] LABS: Creatinine,Urine Random 129.7 mg/dL
[2024-07-08] MEDS ORDERED: NALBUPHINE 10 MG/ML (10 ML MDV) IV PRN (22:29)
[2024-07-08] MEDS: ACETAMINOPHEN TAB 325 MG TAB PO PRN (22:35)
[2024-07-09] MEDS ORDERED: hydrALAZINE HCL 20 MG/ML 1 ML VIAL IVP PRN (01:53)
[2024-07-09] MEDS ORDERED: LABETALOL 5 MG/ML VIAL MDV IVP PRN (01:53)
[2024-07-09] MEDS: LABETALOL 5 MG/ML VIAL MDV IVP PRN ×2 (02:02→07:57)
[2024-07-09] MEDS ORDERED: TERBUTALINE 1 MG/ML VIAL SQ PRN (05:02)
[2024-07-09] MEDS ORDERED: OXYTOCIN 10 UNIT/ML 1 ML VIAL IM PRN ×2 (05:02→19:45)
[2024-07-09] MEDS ORDERED: miSOPROStoL 200 MCG TAB PO PRN ×2 (05:02→19:45)
[2024-07-09] MEDS ORDERED: CARBOPROST TROMETHAMINE 250 MCG/ML 1 ML AMP IM PRN ×2 (05:02→19:45)
[2024-07-09] MEDS ORDERED: TRANEXAMIC 1,000 MG/100ML-NACL 1,000 MG in EMPTY BAG 1 BAG IV PRN ×2 (05:02→19:45)
[2024-07-09] MEDS ORDERED: LIDOCAINE 0.5% (PF) 5 MG/ML (50 ML SDV) SQ PRN (05:02)
[2024-07-09] MEDS ORDERED: miSOPROStoL 200 MCG TAB RECTAL PRN (05:02)
[2024-07-09] MEDS ORDERED: METHYLERGONOVINE 0.2 MG/ML 1 ML AMP IM PRN ×2 (05:02→19:45)
[2024-07-09] MEDS: OXYTOCIN 30 UNITS/500 ML NS 30 UNIT in SALINE 1 500ML.BAG IV SCH (05:57)
[2024-07-09] MEDS: LACTATED RINGERS 1,000 ML IV SCH ×2 (05:58→22:32)
[2024-07-09] MEDS: LABETALOL 5 MG/ML VIAL MDV IVP STA (07:40)
[2024-07-09] MEDS: ROPIVACAINE 225 MG, fentaNYL (PF). 450 MCG in SODIUM CHLORIDE 0.9% 171 ML EPIDURAL ONE (15:00)
[2024-07-09] MEDS: CITRIC ACID-SODIUM CITRATE 15 ML CUP PO ONE (20:00)
[2024-07-09] MEDS ORDERED: ONDANSETRON 4 MG/2 ML VIAL ONE (20:00)
[2024-07-09] MEDS ORDERED: MORPHINE SULFATE (PF) 0.3 MG/0.3 ML SYR ONE (20:00)
[2024-07-09] MEDS ORDERED: OXYTOCIN 30 UNITS/500 ML NS BAG IV ONE (20:00)
[2024-07-09] MEDS ORDERED: diphenhydrAMINE 50 MG/ML 1 ML VIAL IVP PRN ×2 (20:47)
[2024-07-09] MEDS ORDERED: diphenhydrAMINE 50 MG CAP PO PRN (20:47)
[2024-07-09] MEDS ORDERED: ZOLPIDEM 5 MG TAB PO PRN (20:47)
[2024-07-09] MEDS ORDERED: diphenhydrAMINE 25 MG CAP PO PRN (20:47)
[2024-07-09] MEDS ORDERED: ONDANSETRON 4 MG/2 ML VIAL IVP PRN (20:47)
[2024-07-09] MEDS ORDERED: SIMETHICONE 80 MG CHEWABLE PO PRN (20:47)
[2024-07-09] MEDS ORDERED: METOCLOPRAMIDE 5 MG/ML 2 ML VIAL IVP PRN (20:47)
[2024-07-09] MEDS ORDERED: NALOXONE 0.4 MG/ML 1 ML VIAL IV PRN (20:47)
--- NOTE | 2024-07-09 20:54 | P.OP ---
Date of Procedure: 07/09/24 Preoperative Diagnosis: IUP at 38-3/7 weeks, gestational hypertension, arrest of dilation after approximately 11 hours. Postoperative Diagnosis: Same Procedure(s) Performed: Primary low-transverse section Anesthesia: epidural Surgeon: Corina Leonard Lithographic Platemaker #1: Parminder Arias Estimated Blood Loss (ml): 480 IV fluids (ml): 1,000 Urine output (ml): 50 Pathology: none sent Condition: stable Disposition: observation Indications for Procedure: 28-year-old 1 para 0 that presented to the office yesterday with noted elevated blood pressure 160/90, patient denied signs or symptoms of preec lampsia. Preeclampsia labs were negative, protein creatinine ratio was elevated. Patient was admitted and Dilapan was placed for induction of labor. Patient was noted to be 4 cm this morning and amniotomy was performed. Meconium stained fluid was appreciated. Patient made 1 cm of change throughout the day and discussion with patient was had regarding lack of descent of the head and also dilation. Patient's blood pressures have been labile through the day. Options for primary versus continuing in labor were discussed. Patient and significant other opted for primary after all questions are answered. Operative Findings: Viable male delivered at 2019, weight of 6 pounds 9 ounces, 2970 g, Apgars of 9 and 10 at 1 and 5 minutes respectively. Normal uterus ovaries and tubes were appreciated. Description of Procedure: The patient was prepped and draped in the usual fashion after spinal anesthesia was administered by the anesthesia department. A Pfannenstiel incision was made and extended of the abdominal cavity without difficulty. The bladder peritoneum was elevated and incised and reflected distally. A 2 cm incision was made in the transverse plane of the lower uterine segment to enter the uterus at which time clear fluid was noted. The incision was extended in both directions using the bandage scissors. The head was encountered within the field and delivered up and through the incision where the nose and mouth were thoroughly suctioned. Remainder of the was delivered onto the surgical field where the cord was doubly clamped, cut, and the was passed for resuscitative measures with weight and Apgars as noted above. A segment of cord was then doubly clamped, cut, and set aside should cord gases become necessary. The placenta was delivered manually, intact, and was grossly normal with a grossly normal three-vessel cord. The uterus was exteriorized and the interior cavity of the uterus swept of any remaining placental and membranous fragments with a laparotomy sponge. The margins of the incision were grasped with Mclain clamps and the incision closed in 2 layers. First layer was a running locking layer of 0 Vicryl from margin to margin followed by a second layer of imbricating 0 chromic catgut from margin to margin. Any small points of bleedi ng were then made hemostatic with the Bovie. Once hemostasis was achieved, the posterior cul-de-sac was suctioned with a guard and the uterine and ovarian findings are as noted above. The uterus was replaced within the abdominal cavity and the gutters swept of any remaining blood fluid or clot. The incision was again reexamined and hemostasis was noted to be excellent. Any small point of bleeding were made hemostatic with the Bovie. Once hemostasis was achieved the parietal peritoneum was loosely reapproximated. The layer of muscles were examined and made hemostatic with the Bovie. Attention was then turned to the fascia which was closed with 2 running stitches of 0 Vicryl proceeding from the lateral margins to the midpoint. The subcutaneous tissues were irrigated, made hemostatic with the Bovie, and reapproximated with a running stitch of 30 Vicryl. The skin was reapproximated with regular 4-0 Vicryl. Estimated blood loss for the case was approximately 480 mL. All sponge instrument and needle counts are correct. There were no complications. The patient tolerated the procedure well and proceeded to the recovery room in stable condition. Both mother and are resting comfortably in recovery.
[2024-07-09] MEDS: LABETALOL 200 MG TAB PO SCH (21:32)
[2024-07-09] MEDS: ceFAZolin 3 GM in SODIUM CHLORIDE 0.9% 100 ML IVPB ONE (21:33)
[2024-07-09] MEDS: NIFEdipine XL 30 MG TAB.ER.24 PO SCH (22:31)
[2024-07-09] MEDS: ACETAMINOPHEN IV (For NPO) 1,000 MG in EMPTY BAG 1 BAG IVPB ONE (22:31)
[2024-07-10] MEDS: IBUPROFEN IV 800 MG in SODIUM CHLORIDE 0.9% 250 ML IV ONE (02:43)
[2024-07-10 06:20] LABS: Basophils % (A) 0 %; Eosinophils # (A) 0.2 k/uL (0-0.7); Eosinophils % (A) 1 %; HCT 35.9 % (34.0-46.0); HGB 12.3 gm/dL (11.4-16.0); Lymphocytes % (A) 15 %; MCH 31.4 pg (25.0-35.0); MCHC 34.3 g/dL (31.0-37.0); MCV 91.6 fL (80.0-100.0); Mean Platelet Volume 8.6; Monocytes # (A) 0.6 k/uL (0-1.0); Monocytes % (A) 5 %; Neutrophils % (A) 78 %; Platelet Count 159 k/uL (150-450); RBC 3.92 m/uL (3.80-5.40); RDW 14.8 % (11.5-15.5); WBC 12.9 k/uL (3.8-10.6)
[2024-07-10 06:29] LABS: ALT 10 U/L (4-34); AST 25 U/L (14-36); African American GFR (CKD) >90 (>60 ml/min/1.73 sqM); Blood Urea Nitrogen 9 mg/dL (7-17); LDH 212 U/L (120-246); Non-African American GFR(CKD) >90 (>60 ml/min/1.73 sqM); Uric Acid 6.2 mg/dL (3.7-7.4)
[2024-07-10 07:22] LABS: Partial Thromboplastin Time 24.8 sec (22.0-30.0); Prothrombin Time 10.6 sec (10.0-12.5)
[2024-07-10] MEDS: SENNOSIDES-DOCUSATE SODIUM 1 EACH TAB PO SCH (09:50)
[2024-07-10] MEDS: PRENATAL VIT-IRON-FOLIC ACID 1 EACH TABLET PO SCH (09:50)
[2024-07-10] MEDS: IBUPROFEN 800 MG TAB PO PRN (10:31)
--- NOTE | 2024-07-10 11:11 | P.PNOBGPC ---
Subjective - Subjective Principal diagnosis: POD 1 LTCS, gestation HTN Interval history: Pt is feeling well this am, BP good throughout the night. She has been up to the bathroom and had one spontaneous void. lochia is moderate, BF is going well labs are reviewed with pt this am and normal in nature. Patient reports: Reports appetite normal, Reports voiding normally, Reports pain well controlled, Reports ambulating normally : doing well, nursing well Objective - Vital Signs Latest vital signs: Vital Signs Temp Pulse Resp BP Pulse Ox 07/10/24 09:52 102 H 16 125/80 07/10/24 08:50 102 H 16 07/10/24 08:00 97.5 F L 95 16 127/87 97 07/10/24 06:00 88 16 142/86 07/10/24 04:00 97.2 F L 90 16 141/80 07/10/24 02:00 88 16 142/77 07/10/24 00:00 94 16 141/84 07/09/24 23:18 93 16 141/84 07/09/24 22:50 99.3 F 92 16 166/85 96 07/09/24 22:35 98 16 154/79 07/09/24 22:20 96 16 163/83 07/09/24 22:05 94 16 175/85 07/09/24 21:50 93 16 177/91 07/09/24 21:35 90 16 179/91 07/09/24 21:20 89 16 183/95 07/09/24 21:05 92 16 183/95 98 07/09/24 20:50 97.0 F L 95 16 183/95 97 Intake and Output 07/09/24 07/10/24 07/10/24 22:59 06:59 14:59 Intake Total 33.167 Output Total 1000 1000 Balance -966.833 -1000 Intake: Intake, IV Titration 33.167 Amount Oxytocin 30 Units/500 ml 33.167 Ns 30 unit In Saline 1 500ml.bag @ Per Protocol IV .Q0M [facility] Rx#:[id number] Output: Urine 400 1000 Uretheral (Arora) 500 Output, Quantitative 600 Blood Loss Other: Voiding Method Indwelling Catheter Toilet Indwelling Catheter # Voids 1 # Bowel Movements 0 - Exam Extremities: Present: normal, edema Abdomen: Present: normal appearance, soft Incision: Present: normal, dry, intact Uterus: Present: normal, firm - Labs Labs: Abnormal Lab Results - Last 24 Hours (Table) 07/10/24 07/10/24 Range/Units 06:08 06:08 WBC 12.9 H (3.8-10.6) k/uL Neutrophils # 10.0 H (1.3-7.7) k/uL Fibrinogen 527 H (200-500) mg/dL Assessment and Plan (1) 38 weeks gestation of Current Visit: Yes Status: Acute Code(s): Z3A.38 - 38 WEEKS GESTATION OF SNOMED Code(s): 36909372 (2) Gestational hypertension Current Visit: Yes Status: Acute Code(s): O13.9 - GESTATIONAL HTN W/O SIGNIFICANT PROTEINURIA, UNSP TRIMESTER SNOMED Code(s): 05714201 (3) Obesity Current Visit: Yes Status: Acute Code(s): E66.9 - OBESITY, UNSPECIFIED SNOMED Code(s): 513981657 (4) S/P section Current Visit: Yes Status: Acute Code(s): Z98.891 - HISTORY OF UTERINE SCAR FROM PREVIOUS SURGERY SNOMED Code(s): 990362010 (5) Arrest of dilation, delivered, current hospitalization Current Visit: Yes Status: Acute Code(s): O62.1 - SECONDARY UTERINE INERTIA SNOMED Code(s): 88517414 Plan: patient is doing well postoperatively. continue close montioring of BP, adjust medication as clinically indicated contineu routine post operative care
--- NOTE | 2024-07-10 14:13 | P.PN ---
Progress Note - Text 07/10/24 634am 28-year-old female status post , patient received Duramorph by the epidural. Patient seen and evaluated, patient has a VAS of 1 with no complaint of nausea vomiting or pruritus. Patient doing well
[2024-07-10] MEDS: ACETAMINOPHEN TAB 500 MG TAB PO PRN (15:14)
[2024-07-10] MEDS: NIFEdipine XL 30 MG TAB.ER.24 PO SCH (20:43)
[2024-07-10] MEDS: LABETALOL 5 MG/ML VIAL MDV IVP STA (23:58)
--- NOTE | 2024-07-11 10:44 | P.PNOBGPC ---
Subjective - Subjective Principal diagnosis: Postop day #2, primary , gestational hypertension Interval history: Patient is doing well overall. She is receiving labetalol 200 mg twice daily for blood pressure control. She states her pain is well-controlled. She is ambulating and voiding without difficulty. Her lochia is minimal to moderate. She is breast-feeding with some difficulty but overall doing well. She is tolerating a regular diet without nausea or vomiting. Patient reports: Reports appetite normal, Reports voiding normally, Reports pain well controlled, Reports ambulating normally [place]: doing well, nursing well Objective - Vital Signs Latest vital signs: Vital Signs Temp Pulse Resp BP Pulse Ox 07/11/24 08:00 97.8 F 115 H 20 142/90 97 07/11/24 04:00 98.6 F 107 H 16 143/74 07/11/24 00:00 98.4 F 107 H 16 135/83 98 07/10/24 20:00 98.2 F 105 H 16 158/102 97 07/10/24 16:00 98.1 F 97 14 139/93 98 07/10/24 12:00 98.3 F 92 16 136/84 Intake and Output 07/10/24 07/11/24 07/11/24 22:59 06:59 14:59 Intake Total 200 Output Total 1 Balance -1 200 Intake: Oral 200 Output: Urine 1 Other: # Voids 1 1 - Exam Extremities: Present: normal, edema Abdomen: Present: normal appearance, soft Incision: Present: normal, dry, intact Uterus: Present: normal, firm Assessment and Plan (1) 38 weeks gestation of Current Visit: Yes Status: Acute Code(s): Z3A.38 - 38 WEEKS GESTATION OF SNOMED Code(s): 46840968 (2) Gestational hypertension Current Visit: Yes Status: Acute Code(s): O13.9 - GESTATIONAL HTN W/O SIGNIFICANT PROTEINURIA, UNSP TRIMESTER SNOMED Code(s): 37681075 (3) Obesity Current Visit: Yes Status: Acute Code(s): E66.9 - OBESITY, UNSPECIFIED SNOMED Code(s): 853976683 (4) S/P section Current Visit: Yes Status: Acute Code(s): Z98.891 - HISTORY OF UTERINE SCAR FROM PREVIOUS SURGERY SNOMED Code(s): 153541473 (5) Arrest of dilation, delivered, current hospitalization Current Visit: Yes Status: Acute Code(s): O62.1 - SECONDARY UTERINE INERTIA SNOMED Code(s): 76193542 Plan: Patient is doing well overall. Plan to continue routine postoperative care. Will observe blood pressures and adjust medications as needed. She does wish to stay an additional day for breast-feeding support.
[2024-07-12 01:23] VITALS: RESP 18
[2024-07-12 08:51] VITALS: BP 130/88; PULSE 75; TEMP 98.3
--- NOTE | 2024-07-12 10:04 | P.DS ---
Providers Date of admission: 07/08/24 17:27 Expected date of discharge: 07/12/24 Attending physician: Corina Leonard Primary care physician: Corina Leonard - Discharge Diagnosis(es) (1) 38 weeks gestation of Current Visit: Yes Status: Acute (2) Gestational hypertension Current Visit: Yes Status: Acute (3) Obesity Current Visit: Yes Status: Acute (4) S/P section Current Visit: Yes Status: Acute (5) Arrest of dilation, delivered, current hospitalization Current Visit: Yes Status: Acute Hospital Course: 28-year-old 1 now para 1 that presented to labor and delivery on 07/08 for induction of labor secondary to gestational hypertension at 38-3/7 weeks. Patient was seen in the office where elevated blood pressure was appreciated. Patient was sent to OB triage for evaluation elevated blood pressures continued. Patient denied signs or symptoms of preeclampsia negative preeclampsia labs were appreciated. Protein creatinine ratio was noted to be too elevated to calculate. Patient was admitted and options for induction of labor were discussed. Patient elected Dilapan for induction. Dilapan was placed without difficulty. In the morning patient was noted to be 4 to 5 cm after removal of Dilapan. Amniotomy was performed and Pitocin augmentation of labor was begun. Patient made slow progress through the day eventually stalling at 5 cm. Blood pressures were noted to be very labile throughout the labor process. Patient was counseled on lack of progress and option for primary low-transverse section. Patient agreed after much discussion and all questions were answered. Patient was taken back and primary was performed without difficulty. For full details on the please see the operative report. Patient delivered a viable male infant at 2019 on 07/09 weight of 6 pounds 9 ounces. Patient's course has been complicated by elevated blood pressures. Blood pressures are now well-controlled with Procardia 30 mg extended release. Patient states she is feeling well. She states her pain is well-controlled. She denies concerns. She would like discharge home. Patient Condition at Discharge: Good Plan - Discharge Summary New Discharge Prescriptions: No Action Vit No.179/Iron/Folic [ Tablet] 1 tab PO DAILY Famotidine [Pepcid] 1 tab PO DAILY Discharge Medication List Vit No.179/Iron/Folic [ Tablet] 1 tab PO DAILY 04/10/24 [History] Famotidine [Pepcid] 1 tab PO DAILY 06/27/24 [History] Follow up Appointment(s)/Referral(s): Corina Leonard DO [Primary Care Provider] - 08/20/24 1:15 pm (C/S Appointment 07-25-2024 at 1:45pm) Patient Instructions/Handouts: (GEN), (DC) Activity/Diet/Wound Care/Special Instructions: No tub baths or intercourse until 6 weeks post . Patient is to call the office to make a routine postoperative check in 2 weeks. [id number] ibuprofen and Tylenol as needed for pain. Should she have any concerns prior to her postoperative appointment she is urged to call the office and be seen sooner. Incision care is discussed with the patient, questions are answered. Discharge Disposition: HOME SELF-CARE
== END 2024-07-12 16:30 | disposition home or self-care (01) | DRG 788 ==
LOC: FBPOP 16:30 → 4FBP 17:27
PROVIDERS: ADMIT Obstetrics & Gynecology Obstetrics; ATTEND Obstetrics & Gynecology Obstetrics
PROC: 10D00Z1 Extraction of Products of Conception, Low, Open Approach (ICD-10-PCS; principal; 2024-07-09 20:00)
DX: O13.4 Gestational [pregnancy-induced] hypertension without significant proteinuria, complicating childbirth (principal); J45.909 Unspecified asthma, uncomplicated; O12.14 Gestational proteinuria, complicating childbirth; O62.0 Primary inadequate contractions; O62.1 Secondary uterine inertia; O77.0 Labor and delivery complicated by meconium in amniotic fluid; O99.214 Obesity complicating childbirth; O99.52 Diseases of the respiratory system complicating childbirth; Z37.0 Single live birth; Z3A.38 38 weeks gestation of pregnancy; Z87.891 Personal history of nicotine dependence
CPT/HCPCS: 59025; 59200; 82565; 82570; 83615; 84156; 84450; 84460; 84520; 84550; 85025; 85384; 85610; 85730

== ENCOUNTER 2024-07-26 14:03 | Emergency (ER) | payer OTHER ==
[2024-07-26 14:30] VITALS: RESP 18
--- NOTE | 2024-07-26 14:40 | ED ---
General Adult HPI - General Source: patient Mode of arrival: ambulatory Limitations: no limitations <Randy Redd - Last Filed: 07/26/24 14:40> - General Source: patient, RN notes reviewed Mode of arrival: ambulatory Limitations: no limitations <Angelique Mcgovern - Last Filed: 07/26/24 19:51> - General Chief complaint: Headache Stated complaint: 2wks post ,fever,headache Time Seen by Provider: 07/26/24 16:20 - History of Present Illness Initial comments: Quick note: 28-year-old female with headache. She is allegedly 2 weeks . She contacted her [employer] DESK TECHNICIAN last night still that she still has headache to come to the ER. Patient did have high blood pressure reading yesterday. Patient [place] any leg swelling. Denies any nausea vomiting or abdominal pain. She does complain of fever. No obvious sick contacts. Visual Physical Exam Vital signs reviewed General: Well-appearing, nontoxic, no acute distress. Head: Normocephalic, atraumatic Eyes: PERRLA, EOMI ENT: Airway patent Chest: Nonlabored breathing Skin: No visual rash, normal skin tone Neuro: Alert and oriented 3 Musculoskeletal: No gross abnormalities (Randy Redd) This is a 28-year-old female who presents to the emergency department for a headache. States that she is 2 weeks following an uncomplicated C- section. States that over the last 24 hours she started to gradually develop a headache. This gradually got worse after waking up from a nap. States that it is in the back of her head with radiation into her temples and her eyes. She has had headaches before but not typically this severe. She is taking ibuprofen and Tylenol without much of any relief. Denies any nausea or vomiting. She does have light and sound sensitivity. States that she also started developing fevers. Denies any radiation of pain into her neck. Denies any abdominal pain, chest pain, shortness of breath, or other URI symptoms. (Angelique Mcgovern) - Related Data Home Medications Medication Instructions Recorded Confirmed Vit No.179/Iron/Folic 1 tab PO DAILY 04/10/24 07/08/24 [ Tablet] Famotidine [Pepcid] 1 tab PO DAILY 06/27/24 07/08/24 Previous Rx's Medication Instructions Recorded Ketorolac [Toradol] 10 mg PO Q6HR PRN #15 tab 07/26/24 SUMAtriptan succinate 100 mg PO DIRECTED PRN #20 07/26/24 tablet Allergies Allergy/AdvReac Type Severity Reaction Status Date / Time clindamycin Allergy Swelling/hi Verified 07/26/24 14:30 ves Penicillins Allergy hives, Verified 07/26/24 14:30 swelling Review of Systems ROS Other: All systems not noted in ROS Statement are negative. <Randy Redd - Last Filed: 07/26/24 14:40> ROS Other: All systems not noted in ROS Statement are negative. <Angelique Mcgovern - Last Filed: 07/26/24 19:51> ROS Statement: Those systems with pertinent positive or pertinent negative responses have been documented in the HPI. Past Medical History Past Medical History: Asthma, GERD/Reflux Additional Past Medical History / Comment(s): seizure x 1 as child-after hitting head, "faint sometimes and was told from anxiety", pt called surgeon today to report burning pain and swelling in rt breast, occ "blurred vision" History of Any Multi-Drug Resistant Organisms: None Reported Past Surgical History: Orthopedic Surgery Additional Past Surgical History / Comment(s): right 5th toe surg.x2 Past Anesthesia/Blood Transfusion Reactions: Motion Sickness Additional Past Anesthesia/Blood Transfusion Reaction / Comment(s): was very emotional when woke up after last surg Past Psychological History: Anxiety, Depression Smoking Status: Former smoker - Past Family History Mother Family Medical History: No Reported History <Randy Redd - Last Filed: 07/26/24 14:40> General Exam Limitations: no limitations <Randy Redd - Last Filed: 07/26/24 14:40> Limitations: no limitations General appearance: alert, in no apparent distress Head exam: Present: atraumatic, normocephalic, normal inspection Eye exam: Present: normal appearance, PERRL, EOMI. Absent: scleral icterus, conjunctival injection, periorbital swelling Respiratory exam: Present: normal lung sounds bilaterally. Absent: respiratory distress, wheezes, rales, rhonchi, stridor Cardiovascular Exam: Present: regular rate, normal rhythm, normal heart sounds. Absent: systolic murmur, diastolic murmur, rubs, gallop, clicks Neurological exam: Present: alert, oriented X3, CN II-XII intact Psychiatric exam: Present: normal affect, normal mood Skin exam: Present: warm, dry, intact, normal color. Absent: rash <Angelique Mcgovern - Last Filed: 07/26/24 19:51> Course Vital Signs 07/26/24 07/26/24 14:26 17:38 Temperature 99.2 F 102.8 F H Pulse Rate 128 H 120 H Respiratory 18 18 Rate Blood Pressure 129/83 132/82 O2 Sat by Pulse 99 98 Oximetry Medical Decision Making - Lab Data Result diagrams: 07/26/24 16:02 07/26/24 17:00 - Radiology Data Radiology results: report reviewed, image reviewed <Angelique Mcgovern - Last Filed: 07/26/24 19:51> - Medical Decision Making This is a 28 year old female who presents to the emergency department for heada ches. Was pt. sent in by a medical professional or institution? @ -No Did you speak to anyone other than the patient for history? @ -No Did you review nursing and triage notes? @ -Yes, and I agree, it is accurate with regards to the patient's symptoms. Were old charts reviewed? @ -No Differential Diagnosis? @ -Differential Headache: Migraine, tension, cluster, carbon monoxide, central venous thrombosis, pension karma temporal arteritis, acute closure glaucoma, intercranial hemorrhage, mastoiditis, sinusitis, head injury, this is not meant to be an all-inclusive list. EKG interpreted by me (3pts min.)? @ -Not obtained X-rays interpreted by me (1pt min.)? @ -Not obtained CT interpreted by me (1pt min.)? @ -CT scan of the brain obtained. My interpretation identifies no evidence of an acute intracranial hemorrhage. CTA of the head and neck obtained. My interpretation identifies no evidence of an aneurysm. U/S interpreted by me (1pt. min.)? @ -Not obtained What testing was considered but not performed? (CT, X-rays, U/S, labs)? Why? @ -None What meds were considered but not given? Why? @ -None Did you discuss the management of the patient with other professionals? @ -No Did you reconcile home meds? @ -No Was smoking cessation discussed for >3mins.? @ -No Was critical care preformed (if so, how long)? @ -No Were there social determinants of health that impacted care today? How? (Homelessness, low income, unemployed, alcoholism, drug addiction, transportation, low edu. Level, literacy, decrease access to med. care, penitentiary, rehab)? @ -No Was there de-escalation of care discussed even if they declined? (Discuss DNR or withdrawal of care, Hospice)? @ -No What co-morbidities impacted this encounter? (DM, HTN, Smoking, COPD, CAD, Cancer, CVA, Hep., AIDS, mental health diagnosis, sleep apnea, morbid obesity)? @ -None Was patient admitted / discharged? @ -Discharged. Lab work relatively unremarkable. COVID, influenza, and RSV testing negative. CT scan of the brain and CTA of the head and neck obtained revealing no acute process. Patient was febrile in the emergency department. She had been treated with IV fluids and Tylenol. She was also given a migraine cocktail consisting of Toradol, Decadron, Compazine, and Benadryl. She had significant relief in symptoms afterwards. Patient had requested discharge home after she started feeling better. Symptoms likely viral in nature. Toradol and sumatriptan prescribed for any additional headaches. She was however given very strict return parameters especially given the fevers. Patient expressed understanding and was discharged home in stable condition. Case discussed with ED attending Dr. Redd. Return precautions reviewed in depth, the patient is instructed to return to the emergency department with any new, worsening, or concerning symptoms. Patient verbalized understanding. Undiagnosed new problem with uncertain prognosis? @ -None Drug Therapy requiring intensive monitoring for toxicity (Heparin, Nitro, Insulin, Cardizem)? @ -None Were any procedures done? @ -None Diagnosis/symptom? @ -Headache, fever Acute, or Chronic, or Acute on Chronic? @ -Acute Uncomplicated (without systemic symptoms) or Complicated (systemic symptoms)? @ -Uncomplicated Side effects of treatment? @ -None Exacerbation, Progression, or Severe Exacerbation] @ -Not applicable Poses a threat to life or bodily function? @ -Unlikely (Angelique Mcgovern) - Lab Data Lab Results 07/26/24 07/26/24 07/26/24 Range/Units 16:02 16:02 16:02 WBC 8.6 (3.8-10.6) k/uL RBC 3.94 (3.80-5.40) m/uL Hgb 11.8 (11.4-16.0) gm/dL Hct 36.0 (34.0-46.0) % MCV 91.4 (80.0-100.0) fL MCH 29.9 (25.0-35.0) pg MCHC 32.7 (31.0-37.0) g/dL RDW 14.2 (11.5-15.5) % Plt Count 381 D (150-450) k/uL MPV 7.4 Neutrophils % 85 % Lymphocytes % 10 % Monocytes % 2 % Eosinophils % 2 % Basophils % 0 % Neutrophils # 7.3 (1.3-7.7) k/uL Lymphocytes # 0.8 L (1.0-4.8) k/uL Monocytes # 0.2 (0-1.0) k/uL Eosinophils # 0.1 (0-0.7) k/uL Basophils # 0.0 (0-0.2) k/uL Poikilocytosis Slight PT 12.0 (10.0-12.5) sec INR 1.1 (<1.2) APTT 28.5 (22.0-30.0) sec Sodium (137-145) mmol/L Potassium (3.5-5.1) mmol/L Chloride (98-107) mmol/L Carbon Dioxide (22-30) mmol/L Anion Gap mmol/L BUN (7-17) mg/dL Creatinine (0.52-1.04) mg/dL Est GFR (CKD-EPI)AfAm (>60 ml/min/1.73 sqM) Est GFR (CKD-EPI)NonAf (>60 ml/min/1.73 sqM) Glucose (74-99) mg/dL Plasma Lactic Acid Tyrone (0.7-2.0) mmol/L Uric Acid (3.7-7.4) mg/dL Calcium (8.4-10.2) mg/dL Magnesium (1.6-2.3) mg/dL Total Bilirubin (0.2-1.3) mg/dL AST (14-36) U/L ALT (4-34) U/L Alkaline Phosphatase (38-126) U/L Lactate Dehydrogenase (120-246) U/L Total Protein (6.3-8.2) g/dL Albumin (3.5-5.0) g/dL Urine Color Urine Appearance (Clear) Urine pH (5.0-8.0) Ur Specific Broussard (1.001-1.035) Urine Protein (Negative) Urine Glucose (UA) (Negative) Urine Ketones (Negative) Urine Blood (Negative) Urine Nitrite (Negative) Urine Bilirubin (Negative) Urine Urobilinogen (<2.0) mg/dL Ur Leukocyte Esterase (Negative) Urine RBC (0-5) /hpf Urine WBC (0-5) /hpf Ur Squamous Epith Cells (0-4) /hpf Urine Mucus (None) /hpf Influenza Type A (PCR) Not Detected (Not Detectd) Influenza Type B (PCR) Not Detected (Not Detectd) RSV (PCR) Not Detected (Not Detectd) SARS-CoV-2 (PCR) Not Detected (Not Detectd) 07/26/24 07/26/24 07/26/24 Range/Units 17:00 17:00 18:00 WBC (3.8-10.6) k/uL RBC (3.80-5.40) m/uL Hgb (11.4-16.0) gm/dL Hct (34.0-46.0) % MCV (80.0-100.0) fL MCH (25.0-35.0) pg MCHC (31.0-37.0) g/dL RDW (11.5-15.5) % Plt Count (150-450) k/uL MPV Neutrophils % % Lymphocytes % % Monocytes % % Eosinophils % % Basophils % % Neutrophils # (1.3-7.7) k/uL Lymphocytes # (1.0-4.8) k/uL Monocytes # (0-1.0) k/uL Eosinophils # (0-0.7) k/uL Basophils # (0-0.2) k/uL Poikilocytosis PT (10.0-12.5) sec INR (<1.2) APTT (22.0-30.0) sec Sodium 136 L (137-145) mmol/L Potassium 3.8 (3.5-5.1) mmol/L Chloride 111 H (98-107) mmol/L Carbon Dioxide 19 L (22-30) mmol/L Anion Gap 6 mmol/L BUN 12 (7-17) mg/dL Creatinine 0.62 (0.52-1.04) mg/dL Est GFR (CKD-EPI)AfAm >90 (>60 ml/min/1.73 sqM) Est GFR (CKD-EPI)NonAf >90 (>60 ml/min/1.73 sqM) Glucose 95 (74-99) mg/dL Plasma Lactic Acid Tyrone 1.4 (0.7-2.0) mmol/L Uric Acid 3.7 (3.7-7.4) mg/dL Calcium 8.4 (8.4-10.2) mg/dL Magnesium 1.8 (1.6-2.3) mg/dL Total Bilirubin 0.6 (0.2-1.3) mg/dL AST 26 (14-36) U/L ALT 17 (4-34) U/L Alkaline Phosphatase 135 H (38-126) U/L Lactate Dehydrogenase 250 H (120-246) U/L Total Protein 6.4 (6.3-8.2) g/dL Albumin 3.4 L (3.5-5.0) g/dL Urine Color Light Yellow Urine Appearance Clear (Clear) Urine pH 7.0 (5.0-8.0) Ur Specific Broussard >1.050 H (1.001-1.035) Urine Protein 1+ H (Negative) Urine Glucose (UA) Negative (Negative) Urine Ketones Negative (Negative) Urine Blood Large H (Negative) Urine Nitrite Negative (Negative) Urine Bilirubin Negative (Negative) Urine Urobilinogen <2.0 (<2.0) mg/dL Ur Leukocyte Esterase Moderate H (Negative) Urine RBC 27 H (0-5) /hpf Urine WBC 59 H (0-5) /hpf Ur Squamous Epith Cells 1 (0-4) /hpf Urine Mucus Rare H (None) /hpf Influenza Type A (PCR) (Not Detectd) Influenza Type B (PCR) (Not Detectd) RSV (PCR) (Not Detectd) SARS-CoV-2 (PCR) (Not Detectd) Disposition <Randy Redd - Last Filed: 07/26/24 14:40> Is patient prescribed a controlled substance at d/c from ED?: No Time of Disposition: 19:01 <Angelique Mcgovern - Last Filed: 07/26/24 19:51> Clinical Impression: Headache, Fever Disposition: HOME SELF-CARE Instructions (If sedation given, give patient instructions): Acute Headache (ED) Additional Instructions: Return to the emergency department with any new, worsening, or concerning symptoms. Take the Toradol with Tylenol as needed for pain relief. If you choose to take the Toradol, do not take any other anti-inflammatories such as ibuprofen, take one or the other. You can try taking the sumatriptan as well. Take this at the onset of the headache. Repeat in 2 hours if symptoms persist. Make sure you continue to take Tylenol for fevers and discomfort as well. Follow up with your primary care provider in 1-2 days. Prescriptions: SUMAtriptan succinate 100 mg PO DIRECTED PRN #20 tablet PRN Reason: Migraine Headache Ketorolac [Toradol] 10 mg PO Q6HR PRN #15 tab PRN Reason: Pain Referrals: Lyle Summers MD [Primary Care Provider] - 1-2 days
[2024-07-26] MEDS: SODIUM CHLORIDE 0.9% 1,000 ML IV STA ×2 (16:05→18:19)
[2024-07-26 16:29] LABS: Basophils % (A) 0 %; Eosinophils # (A) 0.1 k/uL (0-0.7); Eosinophils % (A) 2 %; HGB 11.8 gm/dL (11.4-16.0); Lymphocytes # (A) 0.8 k/uL (1.0-4.8); Lymphocytes % (A) 10 %; MCH 29.9 pg (25.0-35.0); MCHC 32.7 g/dL (31.0-37.0); MCV 91.4 fL (80.0-100.0); Mean Platelet Volume 7.4; Monocytes # (A) 0.2 k/uL (0-1.0); Monocytes % (A) 2 %; Neutrophils # (A) 7.3 k/uL (1.3-7.7); Neutrophils % (A) 85 %; Poikilocytosis Slight; RBC 3.94 m/uL (3.80-5.40); RDW 14.2 % (11.5-15.5); WBC 8.6 k/uL (3.8-10.6)
[2024-07-26 16:39] LABS: Platelet Count 381 k/uL (150-450)
[2024-07-26 16:56] LABS: INR 1.1 (<1.2); Partial Thromboplastin Time 28.5 sec (22.0-30.0)
[2024-07-26] MEDS: PROCHLORPERAZINE INJ 10 MG/2 ML VIAL IVP STA (17:01)
[2024-07-26] MEDS: diphenhydrAMINE 50 MG/ML 1 ML VIAL IVP STA (17:01)
[2024-07-26] MEDS: KETOROLAC 15 MG/ML 1 ML VIAL IVP STA ×2 (17:01→18:32)
[2024-07-26] MEDS: DEXAMETHASONE SOD PHOSPHATE 10 MG/ML 1 ML VIAL IVP STA (17:02)
--- NOTE | 2024-07-26 17:15 | CT ---
EXAMINATION TYPE: CT brain wo con DATE OF EXAM: 07/26/2024 4:53 PM COMPARISON: None. CLINICAL INDICATION: Female, 28 years old with history of Headache, headache/ post 3 weeks TECHNIQUE: Brain: Axial CT images of the brain were obtained with coronal and sagittal reformats created and rev iewed. Contrast used: None. Oral contrast used: None. CT DLP: combined dlp 2012.4 mGycm, Automated exposure control for dose reduction was used. FINDINGS: Brain: Extra-axial spaces: No abnormal extra-axial fluid collections. Ventricular system: Within normal limits Cerebral parenchyma: No acute intraparenchymal hemorrhage or mass effect. The hassan-white junction is well differentiated. Cerebellum: Unremarkable. Mass effect: No evidence of midline shift. Intracranial vasculature: unremarkable Soft tissues: Normal. Calvarium/osseous structures: No depressed skull fracture. Paranasal sinuses and mastoid air cells: Mild scattered paranasal sinus disease. Visualized orbits: Orbital contents are intact. IMPRESSION: No acute intracranial process. [facility], , 07/26/2024 5:13 PM
[2024-07-26 17:25] LABS: ALT 17 U/L (4-34); AST 26 U/L (14-36); African American GFR (CKD) >90 (>60 ml/min/1.73 sqM); Albumin 3.4 g/dL (3.5-5.0); Alkaline Phosphatase 135 U/L (38-126); Anion Gap 6 mmol/L; Blood Urea Nitrogen 12 mg/dL (7-17); Calcium 8.4 mg/dL (8.4-10.2); Carbon Dioxide 19 mmol/L (22-30); Chloride 111 mmol/L (98-107); Glucose 95 mg/dL (74-99); LDH 250 U/L (120-246); Magnesium 1.8 mg/dL (1.6-2.3); Non-African American GFR(CKD) >90 (>60 ml/min/1.73 sqM); Potassium 3.8 mmol/L (3.5-5.1); Sodium 136 mmol/L (137-145); Total Bilirubin 0.6 mg/dL (0.2-1.3); Total Protein 6.4 g/dL (6.3-8.2); Uric Acid 3.7 mg/dL (3.7-7.4)
--- NOTE | 2024-07-26 17:25 | CT ---
EXAMINATION TYPE: CT angio head neck DATE OF EXAM: 07/26/2024 4:55 PM COMPARISON: Same day CT head.171. CLINICAL INDICATION: Female, 28 years old with history of Headache; PHH, headache/ post 3 week s TECHNIQUE: Axially acquired helical CT angiogram of the head and neck was obtained with contrast. Axi al images are supplemented with 3D reconstructions and MIP images which were post-processed at an in dependent workstation. NASCET criteria used. Contrast used:65 mL of Isovue 370 with IV Contrast, Oral contrast used: None. CT DLP: combined dlp 2012.4 mGycm, Automated exposure control for dose reduction was used. FINDINGS: CTA HEAD: No evidence of acute intracranial hemorrhage, mass effect, or midline shift. The ventricles, sulci, a nd cisterns are unremarkable. Vertebral arteries: The vertebral arteries are patent. Vertebral artery dominance: Codominant Basilar artery: The basilar artery is intact. The basilar artery bifurcation is normal. Internal Carotid arteries: The cervical, petrous, cavernous and supraclinoid segments are normal. KARINE: Patent with no evidence of aneurysm. ACOM: Present without evidence of aneurysm. MCA: Patent with no evidence of aneurysm. [employer]: origins bilaterally. Patent with no evidence of aneurysm. PCOM: origins bilaterally Dural sinuses: Patent. CTA NECK: Right Carotid System: The common carotid artery and external carotid artery are patent. The carotid bifurcation demonstrate s no evidence of hemodynamically significant stenosis. The remaining portions of the internal carotid artery demonstrate normal size without significant narrowing. Left Carotid System: The common carotid artery and external carotid artery are patent. The carotid bifurcation demonstrate s no evidence of hemodynamically significant stenosis. The remaining portions of the internal carotid artery demonstrate normal size without significant narrowing. Vertebral arteries are patent without evidence hemodynamically significant stenosis. There is a three-vessel aortic arch. The origins of the great vessels are patent. No evidence of hemo dynamically significant stenosis. Upper thorax: IMPRESSION: No evidence of dissection of the cervical internal carotid arteries or vertebral arteries. No any evidence of significant stenosis at the carotid bifurcations. No evidence of intracranial high-grade stenosis or intracranial aneurysm. [facility], , 07/26/2024 5:22 PM
[2024-07-26 17:39] VITALS: BP 132/82; PULSE 120; TEMP 102.8
[2024-07-26] MEDS: ACETAMINOPHEN TAB 500 MG TAB PO STA (18:15)
[2024-07-26] MEDS: SUMAtriptan succinate 6 MG/0.5 ML VIAL SQ STA (18:37)
[2024-07-26 18:48] LABS: Appearance,Urine Clear (Clear); Bilirubin,Urine Negative (Negative); Blood,Urine Large (Negative); Color,Urine Light Yellow; Glucose,Urine (UA) Negative (Negative); Ketones,Urine Negative (Negative); Leukocyte Esterase,Urine Moderate (Negative); Mucus,Urine Rare /hpf; Nitrite,Urine Negative (Negative); Protein,Urine 1+ (Negative); RBC,Urine 27 /hpf (0-5); Squamous Epithelial Cell,Urine 1 /hpf (0-4); Urobilinogen,Urine <2.0 mg/dL (<2.0); WBC,Urine 59 /hpf (0-5)
[2024-07-26 18:49] LABS: Specific Gravity,Urine >1.050 (1.001-1.035)
== END 2024-07-26 19:08 | disposition home or self-care (01) ==
LOC: EC 14:03
DX: O90.89 Other complications of the puerperium, not elsewhere classified (principal); R51.9 Headache, unspecified; R50.9 Fever, unspecified; Z88.8 Allergy status to other drugs, medicaments and biological substances; Z88.0 Allergy status to penicillin; Z87.891 Personal history of nicotine dependence
CPT/HCPCS: 99284; 96374; 96375 ×3; 96376; 96361 ×3; 36415; 80053; 85652; 83605; 83615; 83735; 84550; 85025; 85610; 85730; 86140; 81001; 87636; 70496; 70450; 70498; 96372; J3030; J1200; J0780; J1100; J1885; Q9967